=== PATIENT | female | born 1955 | race Caucasian/White ===

== ENCOUNTER 2018-06-07 21:54 | Emergency (ER) | payer BC ==
[2018-06-07 22:03] VITALS: RESP 20
[2018-06-07] MEDS ORDERED: SODIUM CHLORIDE 0.9% 500 ML IV STA (22:15)
[2018-06-07] MEDS ORDERED: METOCLOPRAMIDE 5 MG/ML 2 ML VIAL IVP STA (22:15)
[2018-06-07] MEDS ORDERED: FAMOTIDINE 20 MG/2 ML VIAL IV STA (22:16)
--- NOTE | 2018-06-07 22:22 | ED ---
General Adult HPI - General Chief complaint: Abdominal Pain Stated complaint: Nausea Time Seen by Provider: 06/07/18 22:10 Source: patient, family, RN notes reviewed Mode of arrival: ambulatory Limitations: no limitations - History of Present Illness Initial comments: Patient is a pleasant [age]-year-old female presenting to the emergency department with nausea. Patient states she feels like she can't swallow right now. Patient denies vomiting. Patient has been having some symptoms recently. Patient did have recent visit at [facility] in [place] and diagnosed with recurrence of her cancer in the lymph nodes. Patient is scheduled for chemotherapy next week. Patient does have history of uterine cancer with hysterectomy 2 years ago and chemotherapy. Patient had chest x-ray and computed tomography scan of her abdomen 1 week ago. Patient did have some lower abdominal discomfort couple of days ago with diarrhea that is essentially resolved. Patient only has mild discomfort in the upper abdomen at this time. - Related Data Home Medications Medication Instructions Recorded Confirmed Calcium Carbonate/Vitamin D3 1 tab PO DAILY 06/07/18 06/07/18 [Caltrate 600 Plus D3 Tablet] Naproxen Sodium [Aleve] 220 mg PO DAILY PRN 06/07/18 06/07/18 Ondansetron HCl [Zofran] 8 mg PO Q8H PRN 06/07/18 06/07/18 Prochlorperazine [Compazine] 10 mg PO Q6H PRN 06/07/18 06/07/18 Allergies Allergy/AdvReac Type Severity Reaction Status Date / Time carboplatin Allergy Unknown Verified 06/07/18 22:34 paclitaxel [From Taxol] Allergy Unknown Verified 06/07/18 22:34 Review of Systems ROS Statement: Those systems with pertinent positive or pertinent negative responses have been documented in the HPI. ROS Other: All systems not noted in ROS Statement are negative. Constitutional: Denies: fever Eyes: Denies: eye pain ENT: Denies: ear pain Respiratory: Denies: cough Cardiovascular: Denies: chest pain Endocrine: Reports: fatigue Gastrointestinal: Reports: abdominal pain, nausea Genitourinary: Denies: dysuria Musculoskeletal: Denies: back pain Skin: Denies: rash Neurological: Denies: headache Past Medical History Past Medical History: Cancer History of Any Multi-Drug Resistant Organisms: None Reported Past Surgical History: Hysterectomy Past Psychological History: No Psychological Hx Reported Smoking Status: Never smoker Past Alcohol Use History: None Reported Past Drug Use History: None Reported General Exam Limitations: no limitations General appearance: alert, in no apparent distress Head exam: Present: atraumatic Eye exam: Present: normal appearance, PERRL ENT exam: Present: normal oropharynx Neck exam: Present: normal inspection Respiratory exam: Present: normal lung sounds bilaterally Cardiovascular Exam: Present: regular rate, normal rhythm Expanded Peripheral pulses: 2+: Dorsalis Pedis (R), Dorsalis Pedis (L) GI/Abdominal exam: Present: soft, tenderness (Minimal epigastric tenderness). Absent: distended, guarding, rebound, rigid Extremities exam: Present: normal inspection. Absent: pedal edema, calf tenderness Neurological exam: Present: alert Psychiatric exam: Present: normal affect, normal mood Skin exam: Present: normal color Course Vital Signs 06/07/18 06/07/18 21:59 23:08 Temperature 97.4 F L Pulse Rate 78 69 Respiratory 20 20 Rate Blood Pressure 129/79 124/65 O2 Sat by Pulse 98 99 Oximetry EKG Findings - EKG Comments: EKG Findings:: Normal sinus rhythm 72. NH 162. QRS 78. QT 396. QTc 433. Normal axis. Normal QRS. No acute ST change. Medical Decision Making - Medical Decision Making Patient reevaluated and is feeling much better. Patient requests discharge home. Abdomen soft and nontender. Patient updated on results and need for follow-up. Patient states she does have a prescription for nausea medication at home however has not gotten filled yet. - Lab Data Result diagrams: 06/07/18 22:44 06/07/18 22:44 Lab Results 06/07/18 06/07/18 06/07/18 Range/Units 22:44 22:44 22:44 WBC 6.2 (3.8-10.6) k/uL RBC 4.45 (3.80-5.40) m/uL Hgb 13.3 (11.4-16.0) gm/dL Hct 40.9 (34.0-46.0) % MCV 91.8 (80.0-100.0) fL MCH 29.9 (25.0-35.0) pg MCHC 32.5 (31.0-37.0) g/dL RDW 13.2 (11.5-15.5) % Plt Count 253 (150-450) k/uL Neutrophils % 79 % Lymphocytes % 13 % Monocytes % 6 % Eosinophils % 1 % Basophils % 0 % Neutrophils # 4.9 (1.3-7.7) k/uL Lymphocytes # 0.8 L (1.0-4.8) k/uL Monocytes # 0.4 (0-1.0) k/uL Eosinophils # 0.1 (0-0.7) k/uL Basophils # 0.0 (0-0.2) k/uL PT 10.1 (9.0-12.0) sec INR 1.0 (<1.2) APTT 22.8 (22.0-30.0) sec Sodium 139 (137-145) mmol/L Potassium 4.6 (3.5-5.1) mmol/L Chloride 104 (98-107) mmol/L Carbon Dioxide 23 (22-30) mmol/L Anion Gap 12 mmol/L BUN 17 (7-17) mg/dL Creatinine 0.61 (0.52-1.04) mg/dL Est GFR (CKD-EPI)AfAm >90 (>60 ml/min/1.73 sqM) Est GFR (CKD-EPI)NonAf >90 (>60 ml/min/1.73 sqM) Glucose 106 H (74-99) mg/dL Calcium 9.0 (8.4-10.2) mg/dL Total Bilirubin 0.6 (0.2-1.3) mg/dL AST 23 (14-36) U/L ALT 23 (9-52) U/L Alkaline Phosphatase 61 (38-126) U/L Total Protein 6.9 (6.3-8.2) g/dL Albumin 4.2 (3.5-5.0) g/dL Amylase 39 (30-110) U/L Lipase 74 (23-300) U/L - Radiology Data Radiology results: image reviewed (Chest x-ray shows nonacute abdomen) Disposition Clinical Impression: Nausea Disposition: HOME SELF-CARE Condition: Stable Instructions: Acute Nausea and Vomiting (ED), Abdominal Pain (ED) Additional Instructions: Please follow-up with your primary care physician and oncologist in the next day or 2 for recheck. Return for fevers, abdominal pain, uncontrolled vomiting , not tolerating oral intake, worsening symptoms or other concerns. Is patient prescribed a controlled substance at d/c from ED?: No Referrals: Gregorio Rangel MD [Primary Care Provider] - 1-2 days Time of Disposition: 00:37
[2018-06-07 23:11] LABS: Basophils % (A) 0 %; Eosinophils # (A) 0.1 k/uL (0-0.7); Eosinophils % (A) 1 %; HCT 40.9 % (34.0-46.0); HGB 13.3 gm/dL (11.4-16.0); Lymphocytes # (A) 0.8 k/uL (1.0-4.8); Lymphocytes % (A) 13 %; MCH 29.9 pg (25.0-35.0); MCHC 32.5 g/dL (31.0-37.0); MCV 91.8 fL (80.0-100.0); Mean Platelet Volume 6.7; Monocytes # (A) 0.4 k/uL (0-1.0); Monocytes % (A) 6 %; Neutrophils # (A) 4.9 k/uL (1.3-7.7); Neutrophils % (A) 79 %; Platelet Count 253 k/uL (150-450); RBC 4.45 m/uL (3.80-5.40); RDW 13.2 % (11.5-15.5); WBC 6.2 k/uL (3.8-10.6)
[2018-06-07 23:14] LABS: Albumin 4.2 g/dL (3.5-5.0); Amylase 39 U/L (30-110); Anion Gap 12 mmol/L; Carbon Dioxide 23 mmol/L (22-30); Chloride 104 mmol/L (98-107); Glucose 106 mg/dL (74-99); Lipase 74 U/L (23-300); Sodium 139 mmol/L (137-145); Total Bilirubin 0.6 mg/dL (0.2-1.3); Total Protein 6.9 g/dL (6.3-8.2)
[2018-06-07 23:15] LABS: Partial Thromboplastin Time 22.8 sec (22.0-30.0); Prothrombin Time 10.1 sec (9.0-12.0)
[2018-06-07 23:18] LABS: ALT 23 U/L (9-52); AST 23 U/L (14-36); Alkaline Phosphatase 61 U/L (38-126); Blood Urea Nitrogen 17 mg/dL (7-17); Potassium 4.6 mmol/L (3.5-5.1)
--- NOTE | 2018-06-08 00:30 | XR ---
EXAMINATION TYPE: XR KUB DATE OF EXAM: 06/08/2018 COMPARISON: NONE HISTORY: Nausea and vomiting TECHNIQUE: 2 views upright FINDINGS: There is no sign of intestinal obstruction or pneumoperitoneum. Fecal pattern is normal. Th ere is no sign of a mass. Lung bases are clear. There are no pathologic calcifications over the kidne ys. IMPRESSION: Nonacute abdomen.
[2018-06-08 00:39] LABS: Appearance,Urine Clear (Clear); Bilirubin,Urine Negative (Negative); Blood,Urine Negative (Negative); Color,Urine Yellow; Glucose,Urine (UA) Negative (Negative); Ketones,Urine 1+ (Negative); Leukocyte Esterase,Urine Trace (Negative); Mucus,Urine Many /hpf; Nitrite,Urine Negative (Negative); PH, Urine 5.5 (5.0-8.0); Protein,Urine Trace (Negative); RBC,Urine 1 /hpf (0-5); Specific Gravity,Urine 1.023 (1.001-1.035); Squamous Epithelial Cell,Urine 1 /hpf (0-4)
[2018-06-08 01:12] VITALS: BP 125/67; PULSE 74; TEMP 96.9
== END 2018-06-08 01:13 | disposition home or self-care (01) ==
LOC: EC 21:54
DX: R11.0 Nausea (principal); R10.9 Unspecified abdominal pain; Z85.42 Personal history of malignant neoplasm of other parts of uterus; Z92.21 Personal history of antineoplastic chemotherapy; Z90.710 Acquired absence of both cervix and uterus; Z88.8 Allergy status to other drugs, medicaments and biological substances
CPT/HCPCS: 36415; 93005; 80053; 82150; 83690; 85025; 85610; 85730; 81001; 74018; 99284; 96374; 96375; 96361 ×2; J2765

== ENCOUNTER 2019-08-12 09:25 | Inpatient (IN) | payer MEDICARE, OTHER ==
[2019-08-12] MEDS ORDERED: ONDANSETRON 4 MG/2 ML VIAL IVP STA (10:23)
[2019-08-12] MEDS ORDERED: SODIUM CHLORIDE 0.9% 1,000 ML IV STA (10:23)
[2019-08-12] MEDS ORDERED: PANTOPRAZOLE 40 MG/10 ML VIAL IVP STA (10:23)
--- NOTE | 2019-08-12 10:34 | ED ---
General Adult HPI - General Chief complaint: Nausea/Vomiting/Diarrhea Stated complaint: Vomiting Time Seen by Provider: 08/12/19 10:08 Source: patient Mode of arrival: wheelchair Limitations: no limitations - History of Present Illness Initial comments: Patient is 63-year-old female with history of uterine cancer presenting to the emergency department with a chief complaint of weakness. Patient states over the last 2 weeks she developed generalized weakness due to continuous nausea and multiple episodes of vomiting. She reports going to come on assistance. Endotracheal for recurrent effusions of magnesium, potassium of fluids. Patient reports some improvement after the effusions although she comes home and starts to feel generally weak again. She states that she's not able to keep anything down. Denies any fevers night sweats or chills. Denies any cough shortness of breath or leg swelling. Denies any chest pain,headaches and dizziness but does report some lightheadedness. Denies any diarrhea. Denies any urinary or vaginal symptoms. - Related Data Home Medications Medication Instructions Recorded Confirmed Calcium Carbonate/Vitamin D3 1 tab PO DAILY 06/07/18 06/07/18 [Caltrate 600 Plus D3 Tablet] Naproxen Sodium [Aleve] 220 mg PO DAILY PRN 06/07/18 06/07/18 Ondansetron HCl [Zofran] 8 mg PO Q8H PRN 06/07/18 06/07/18 Prochlorperazine [Compazine] 10 mg PO Q6H PRN 06/07/18 06/07/18 Allergies Allergy/AdvReac Type Severity Reaction Status Date / Time carboplatin Allergy Unknown Verified 08/12/19 10:05 paclitaxel [From Taxol] Allergy Unknown Verified 08/12/19 10:05 Review of Systems ROS Statement: Those systems with pertinent positive or pertinent negative responses have been documented in the HPI. ROS Other: All systems not noted in ROS Statement are negative. Past Medical History Past Medical History: Cancer Additional Past Medical History / Comment(s): UTERINE CANCER -IN REMISSION OF 07/2019 History of Any Multi-Drug Resistant Organisms: None Reported Past Surgical History: Hysterectomy Past Psychological History: No Psychological Hx Reported Smoking Status: Never smoker Past Alcohol Use History: None Reported Past Drug Use History: None Reported General Exam Limitations: no limitations General appearance: alert, in no apparent distress Head exam: Present: atraumatic, normocephalic, normal inspection Eye exam: Present: normal appearance Pupils: Present: normal accommodation ENT exam: Present: normal exam, mucous membranes moist Neck exam: Present: normal inspection, full ROM Respiratory exam: Present: normal lung sounds bilaterally Cardiovascular Exam: Present: regular rate, normal rhythm, normal heart sounds GI/Abdominal exam: Present: soft. Absent: distended, tenderness, guarding Extremities exam: Present: normal inspection, full ROM, normal capillary refill. Absent: pedal edema (No edema bilaterally), calf tenderness (Negative Homans bilaterally.) Back exam: Present: normal inspection, full ROM Neurological exam: Present: alert, oriented X3 Psychiatric exam: Present: normal affect, normal mood Skin exam: Present: warm, dry, intact, normal color Course Vital Signs 08/12/19 08/12/19 10:01 13:05 Temperature 97.6 F Pulse Rate 84 82 Respiratory 16 18 Rate Blood Pressure 145/82 127/62 O2 Sat by Pulse 96 98 Oximetry EKG Findings - EKG Comments: EKG Findings:: Sinus rhythm, no ST changes. Ventricular rate 72, NM interval 162, Q sabianism 74, QT/QTC 388/424. Medical Decision Making - Medical Decision Making Patient is 63-year-old female with history of uterine cancer presenting to the emergency department with chief complaint of weakness. Patient reports for the past. She is having continuous nausea and vomiting. She was weakly to come is instituted for fluids, magnesium and potassium effusions. Patient reports every time she returns home she developed continuous nausea. Patient reports she has not been able to keep any food down with minimal liquids. No chest pain shortness of breath cough or any leg swelling. Chest x-ray unremarkable. Patient is not anemic currently. UA shows +2 ketones which I suspect is secondary to dehydration. Patient given 1 L of fluids. 2 mg of IV magnesium. On reevaluation patient reports improvement in symptoms but otherwise is still feeling weak and unable to ambulate. Patient will be admitted for dehydration. Case discussed with physician. Admitting physician is Dr. mann. - Lab Data Result diagrams: 08/12/19 10:56 08/12/19 10:56 Lab Results 08/12/19 08/12/19 08/12/19 Range/Units 10:56 10:56 10:56 WBC 8.4 (3.8-10.6) k/uL RBC 3.52 L (3.80-5.40) m/uL Hgb 12.3 (11.4-16.0) gm/dL Hct 36.9 (34.0-46.0) % MCV 104.9 H (80.0-100.0) fL MCH 34.9 (25.0-35.0) pg MCHC 33.3 (31.0-37.0) g/dL RDW 13.2 (11.5-15.5) % Plt Count 258 (150-450) k/uL Neutrophils % 89 % Lymphocytes % 6 % Monocytes % 4 % Eosinophils % 0 % Basophils % 0 % Neutrophils # 7.5 (1.3-7.7) k/uL Lymphocytes # 0.5 L (1.0-4.8) k/uL Monocytes # 0.3 (0-1.0) k/uL Eosinophils # 0.0 (0-0.7) k/uL Basophils # 0.0 (0-0.2) k/uL Macrocytosis Slight PT 10.5 (9.0-12.0) sec INR 1.0 (<1.2) APTT 20.7 L (22.0-30.0) sec Sodium 136 L (137-145) mmol/L Potassium 3.9 (3.5-5.1) mmol/L Chloride 99 (98-107) mmol/L Carbon Dioxide 24 (22-30) mmol/L Anion Gap 13 mmol/L BUN 17 (7-17) mg/dL Creatinine 0.66 (0.52-1.04) mg/dL Est GFR (CKD-EPI)AfAm >90 (>60 ml/min/1.73 sqM) Est GFR (CKD-EPI)NonAf >90 (>60 ml/min/1.73 sqM) Glucose 145 H (74-99) mg/dL Calcium 10.7 H (8.4-10.2) mg/dL Magnesium (1.6-2.3) mg/dL Total Bilirubin 0.6 (0.2-1.3) mg/dL AST 20 (14-36) U/L ALT 18 (4-34) U/L Alkaline Phosphatase 71 (38-126) U/L Troponin I (0.000-0.034) ng/mL Total Protein 7.1 (6.3-8.2) g/dL Albumin 4.5 (3.5-5.0) g/dL Amylase 34 (30-110) U/L Lipase 36 (23-300) U/L Urine Color Urine Appearance (Clear) Urine pH (5.0-8.0) Ur Specific [place] (1.001-1.035) Urine Protein (Negative) Urine Glucose (UA) (Negative) Urine Ketones (Negative) Urine Blood (Negative) Urine Nitrite (Negative) Urine Bilirubin (Negative) Urine Urobilinogen (<2.0) mg/dL Ur Leukocyte Esterase (Negative) Urine RBC (0-5) /hpf Urine WBC (0-5) /hpf Ur Squamous Epith Cells (0-4) /hpf Urine Bacteria (None) /hpf Urine Mucus (None) /hpf 08/12/19 08/12/19 08/12/19 Range/Units 10:56 10:56 12:45 WBC (3.8-10.6) k/uL RBC (3.80-5.40) m/uL Hgb (11.4-16.0) gm/dL Hct (34.0-46.0) % MCV (80.0-100.0) fL MCH (25.0-35.0) pg MCHC (31.0-37.0) g/dL RDW (11.5-15.5) % Plt Count (150-450) k/uL Neutrophils % % Lymphocytes % % Monocytes % % Eosinophils % % Basophils % % Neutrophils # (1.3-7.7) k/uL Lymphocytes # (1.0-4.8) k/uL Monocytes # (0-1.0) k/uL Eosinophils # (0-0.7) k/uL Basophils # (0-0.2) k/uL Macrocytosis PT (9.0-12.0) sec INR (<1.2) APTT (22.0-30.0) sec Sodium (137-145) mmol/L Potassium (3.5-5.1) mmol/L Chloride (98-107) mmol/L Carbon Dioxide (22-30) mmol/L Anion Gap mmol/L BUN (7-17) mg/dL Creatinine (0.52-1.04) mg/dL Est GFR (CKD-EPI)AfAm (>60 ml/min/1.73 sqM) Est GFR (CKD-EPI)NonAf (>60 ml/min/1.73 sqM) Glucose (74-99) mg/dL Calcium (8.4-10.2) mg/dL Magnesium 1.0 L (1.6-2.3) mg/dL Total Bilirubin (0.2-1.3) mg/dL AST (14-36) U/L ALT (4-34) U/L Alkaline Phosphatase (38-126) U/L Troponin I <0.012 (0.000-0.034) ng/mL Total Protein (6.3-8.2) g/dL Albumin (3.5-5.0) g/dL Amylase (30-110) U/L Lipase (23-300) U/L Urine Color Yellow Urine Appearance Cloudy H (Clear) Urine pH 6.5 (5.0-8.0) Ur Specific [place] 1.018 (1.001-1.035) Urine Protein Trace H (Negative) Urine Glucose (UA) Negative (Negative) Urine Ketones 2+ H (Negative) Urine Blood Negative (Negative) Urine Nitrite Negative (Negative) Urine Bilirubin Negative (Negative) Urine Urobilinogen <2.0 (<2.0) mg/dL Ur Leukocyte Esterase Moderate H (Negative) Urine RBC 1 (0-5) /hpf Urine WBC 6 H (0-5) /hpf Ur Squamous Epith Cells 5 H (0-4) /hpf Urine Bacteria Rare H (None) /hpf Urine Mucus Few H (None) /hpf Disposition Clinical Impression: Dehydration Disposition: ADMITTED IP TO THIS HOSP Condition: Stable Instructions (If sedation given, give patient instructions): Acute Diarrhea (ED) Additional Instructions: Patient will be admitted Is patient prescribed a controlled substance at d/c from ED?: No Referrals: Gregorio Rangel MD [Primary Care Provider] - 1-2 days Time of Disposition: 13:50
[2019-08-12 11:10] LABS: Basophils % (A) 0 %; Eosinophils % (A) 0 %; HCT 36.9 % (34.0-46.0); HGB 12.3 gm/dL (11.4-16.0); Lymphocytes # (A) 0.5 k/uL (1.0-4.8); Lymphocytes % (A) 6 %; MCH 34.9 pg (25.0-35.0); MCHC 33.3 g/dL (31.0-37.0); MCV 104.9 fL (80.0-100.0); Macrocytosis Slight; Mean Platelet Volume 7.8; Monocytes # (A) 0.3 k/uL (0-1.0); Monocytes % (A) 4 %; Neutrophils # (A) 7.5 k/uL (1.3-7.7); Neutrophils % (A) 89 %; Platelet Count 258 k/uL (150-450); RBC 3.52 m/uL (3.80-5.40); RDW 13.2 % (11.5-15.5); WBC 8.4 k/uL (3.8-10.6)
[2019-08-12 11:18] LABS: ALT 18 U/L (4-34); AST 20 U/L (14-36); African American GFR (CKD) >90 (>60 ml/min/1.73 sqM); Albumin 4.5 g/dL (3.5-5.0); Alkaline Phosphatase 71 U/L (38-126); Amylase 34 U/L (30-110); Anion Gap 13 mmol/L; Blood Urea Nitrogen 17 mg/dL (7-17); Calcium 10.7 mg/dL (8.4-10.2); Carbon Dioxide 24 mmol/L (22-30); Chloride 99 mmol/L (98-107); Glucose 145 mg/dL (74-99); Non-African American GFR(CKD) >90 (>60 ml/min/1.73 sqM); Potassium 3.9 mmol/L (3.5-5.1); Sodium 136 mmol/L (137-145); Total Bilirubin 0.6 mg/dL (0.2-1.3); Total Protein 7.1 g/dL (6.3-8.2)
[2019-08-12] MEDS ORDERED: MORPHINE SULFATE 4 MG/ML SYRINGE IVP STA (11:29)
[2019-08-12 11:33] LABS: Prothrombin Time 10.5 sec (9.0-12.0)
[2019-08-12 11:41] LABS: Partial Thromboplastin Time 20.7 sec (22.0-30.0)
--- NOTE | 2019-08-12 12:11 | XR ---
EXAMINATION TYPE: XR chest 2V DATE OF EXAM: 08/12/2019 HISTORY: weakness. REFERENCE: NONE. FINDINGS: The lungs are clear. Pleural spaces are clear. Heart size is within normal limits. Note is made of a Mediport on the right. IMPRESSION: NO ACUTE INTRATHORACIC ABNORMALITY.
[2019-08-12 13:33] LABS: Appearance,Urine Cloudy (Clear); Bacteria,Urine Rare /hpf; Bilirubin,Urine Negative (Negative); Blood,Urine Negative (Negative); Color,Urine Yellow; Glucose,Urine (UA) Negative (Negative); Ketones,Urine 2+ (Negative); Leukocyte Esterase,Urine Moderate (Negative); Mucus,Urine Few /hpf; Nitrite,Urine Negative (Negative); PH, Urine 6.5 (5.0-8.0); Protein,Urine Trace (Negative); RBC,Urine 1 /hpf (0-5); Specific Gravity,Urine 1.018 (1.001-1.035); Squamous Epithelial Cell,Urine 5 /hpf (0-4); Urobilinogen,Urine <2.0 mg/dL (<2.0); WBC,Urine 6 /hpf (0-5)
[2019-08-12] MEDS: MAGNESIUM SULFATE-D5W PMX 1 GM in DEXTROSE/WATER 1 100ML.BAG IVPB SCH ×2 (13:50→15:05)
[2019-08-12] MEDS ORDERED: NALOXONE 0.4 MG/ML 1 ML VIAL IV PRN (14:51)
[2019-08-12] MEDS ORDERED: SODIUM CHLORIDE 0.9% 1,000 ML IV SCH (15:00)
[2019-08-12] MEDS: Acetaminophen-Codeine 300-30mg TAB PO PRN (18:21)
[2019-08-12] MEDS: PARoxetine 20 MG TAB PO SCH (19:54)
--- NOTE | 2019-08-12 22:36 | P.HPIM ---
History of Present Illness H&P Date: 08/12/19 Chief Complaint: Weak and tired History of presenting complaint: This is a pleasant 63-year-old patient of Dr. Gregorio Rangel. Patient has a diagnosis of uterine cancer. Did undergo total history.. Patient had 2 rounds of chemotherapy for positive lymph nodes. Second one being completed in September of this year. Patient has been on a maintenance medication. For 3 weeks patient started having nausea vomiting predominantly dry heaving. Unable to keep any food down. Progressively has gotten worse. 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 Decided to come in. I noticed that patient's left side of the face is weak she thinks this may be present for over 2 weeks not sure. She has some water from the left eye. No change in speech. No headache. No other focal weakness. Review of systems: GEN.: Weak tired EYES: Some eye watering from the left eye HEENT: None NECK: None RESPIRATORY: None CARDIOVASCULAR: None GASTROINTESTINAL: As above GENITOURINARY: None MUSCULOSKELETAL: None LYMPHATICS: None HEMATOLOGICAL: None PSYCHIATRY: None NEUROLOGICAL: None Social history: Does not smoke or drink alcohol. . Family history: Reviewed, noncontributory to presentation Physical examination: VITAL SIGNS: 97.6, 84, 16, 145/82, 96% room air GENERAL: 25.8, laying in bed. Bit tired appearing. EYES: [Pupils equal. Conjunctiva pale. HEENT: External appearance of nose and ears normal, oral cavity dry. NECK: JVD not raised; masses not palpable. HEART: First and second heart sounds are normal; no edema. LUNGS: Respiratory rate normal; clear to auscultation. ABDOMEN: Soft, nontender, liver spleen not palpable, no masses palpable. PSYCH: Alert and oriented x3; mood and affect normal. NEUROLOGICAL: Skeletal facial muscles are weak. Unable to fully close the left eye., Multiple sport of the right, less so wrinkling on the left forehead. No other focal findings . LYMPHATICS: No lymph nodes palpable in the axilla and neck INVESTIGATIONS, reviewed in the clinical context: White count 8.4 hemoglobin 12.3 platelets were 258 potassium 3.9 creatinine 0.66 Calcium 10.7. Magnesium 1 UA positive for leukoesterase WBC Assessment: -Clinical dehydration from persistent nausea for last 3 weeks. Patient been hardly able to keep any food down. 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 He was scopolam ine patch. Try the patient on a full liquid diet. Replacement patient. Start the patient on IV ceftriaxone. Lovenox for DVT prophylaxis. Care was discussed with the patient. Questions were answered Past Medical History Past Medical History: Cancer Additional Past Medical History / Comment(s): UTERINE CANCER -IN REMISSION OF 07/2019 History of Any Multi-Drug Resistant Organisms: None Reported Past Surgical History: Hysterectomy Past Psychological History: No Psychological Hx Reported Smoking Status: Never smoker Past Alcohol Use History: None Reported Past Drug Use History: None Reported Medications and Allergies Home Medications Medication Instructions Recorded Confirmed Type PARoxetine [Paxil] 20 mg PO HS 08/12/19 08/12/19 History Allergies Allergy/AdvReac Type Severity Reaction Status Date / Time carboplatin Allergy Unknown Verified 08/12/19 13:54 paclitaxel [From Taxol] Allergy Unknown Verified 08/12/19 13:54 Physical Exam Vitals: Vital Signs Temp Pulse Pulse Pulse Resp BP BP 08/12/19 21:09 97.4 F L 74 15 145/72 08/12/19 16:00 97.4 F L 79 16 136/82 08/12/19 15:17 97.6 F 75 18 134/56 08/12/19 15:16 75 18 134/56 08/12/19 13:05 82 18 127/62 08/12/19 10:01 97.6 F 84 16 145/82 Pulse Ox 08/12/19 21:09 08/12/19 16:00 95 08/12/19 15:17 98 08/12/19 15:16 98 08/12/19 13:05 98 08/12/19 10:01 96 Intake and Output 08/12/19 08/12/19 08/12/19 06:59 14:59 22:59 Other: Voiding Method Bedside Commode # Voids 1 Weight 72.575 kg 72.575 kg Results CBC & Chem 7: 08/12/19 10:56 08/12/19 10:56 Labs: Abnormal Lab Results - Last 24 Hours (Table) 08/12/19 08/12/19 08/12/19 Range/Units 10:56 10:56 10:56 RBC 3.52 L (3.80-5.40) m/uL MCV 104.9 H (80.0-100.0) fL Lymphocytes # 0.5 L (1.0-4.8) k/uL APTT 20.7 L (22.0-30.0) sec Sodium 136 L (137-145) mmol/L Glucose 145 H (74-99) mg/dL Calcium 10.7 H (8.4-10.2) mg/dL Magnesium (1.6-2.3) mg/dL Urine Appearance (Clear) Urine Protein (Negative) Urine Ketones (Negative) Ur Leukocyte Esterase (Negative) Urine WBC (0-5) /hpf Ur Squamous Epith Cells (0-4) /hpf Urine Bacteria (None) /hpf Urine Mucus (None) /hpf 08/12/19 08/12/19 Range/Units 10:56 12:45 RBC (3.80-5.40) m/uL MCV (80.0-100.0) fL Lymphocytes # (1.0-4.8) k/uL APTT (22.0-30.0) sec Sodium (137-145) mmol/L Glucose (74-99) mg/dL Calcium (8.4-10.2) mg/dL Magnesium 1.0 L (1.6-2.3) mg/dL Urine Appearance Cloudy H (Clear) Urine Protein Trace H (Negative) Urine Ketones 2+ H (Negative) Ur Leukocyte Esterase Moderate H (Negative) Urine WBC 6 H (0-5) /hpf Ur Squamous Epith Cells 5 H (0-4) /hpf Urine Bacteria Rare H (None) /hpf Urine Mucus Few H (None) /hpf Thrombosis Risk Factor Assmnt - Choose All That Apply Any of the Below Risk Factors Present?: No
[2019-08-13] MEDS: LACTATED RINGERS 1,000 ML IV SCH ×4 (00:03→17:05)
[2019-08-13] MEDS: SCOPOLAMINE 1.5MG/72HR PATCH TRANSDERM SCH (00:04)
[2019-08-13] MEDS: MAGNESIUM OXIDE 400 MG TAB PO SCH ×4 (00:04→21:05)
[2019-08-13] MEDS: ENOXAPARIN 40 MG/0.4 ML SYRINGE SQ SCH ×2 (00:04→21:05)
[2019-08-13] MEDS: ONDANSETRON 4 MG/2 ML VIAL IVP PRN ×4 (01:05→22:52)
[2019-08-13 07:43] LABS: African American GFR (CKD) >90 (>60 ml/min/1.73 sqM); Anion Gap 9 mmol/L; Blood Urea Nitrogen 16 mg/dL (7-17); Calcium 9.2 mg/dL (8.4-10.2); Carbon Dioxide 28 mmol/L (22-30); Chloride 98 mmol/L (98-107); Glucose 115 mg/dL (74-99); Magnesium 1.2 mg/dL (1.6-2.3); Non-African American GFR(CKD) >90 (>60 ml/min/1.73 sqM); Potassium 3.6 mmol/L (3.5-5.1); Sodium 135 mmol/L (137-145)
[2019-08-13] MEDS ORDERED: MAGNESIUM SULFATE-D5W PMX 2 GM in DEXTROSE/WATER 1 100ML.BAG IVPB ONE (11:26)
[2019-08-13] MEDS: Acetaminophen-Codeine 300-30mg TAB PO PRN (17:04)
[2019-08-13 20:41] LABS: Glucose,Whole Blood 130 mg/dL (75-99)
[2019-08-13] MEDS: PARoxetine 20 MG TAB PO SCH (21:05)
--- NOTE | 2019-08-13 21:16 | P.PN ---
Progress Note - Text Progress Note Date: 08/13/19 Chief Complaint: Weak and tired History of presenting complaint: This is a pleasant 63-year-old patient of Dr. Gregorio Rangel. Patient has a diagnosis of uterine cancer. Did undergo total history.. Patient had 2 rounds of chemotherapy for positive lymph nodes. Second one being completed in September of this year. Patient has been on a maintenance medication. For 3 weeks patient started having nausea vomiting predominantly dry heaving. Unable to keep any food down. Progressively has gotten worse. 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 Decided to come in. I noticed that patient's left side of the face is weak she thinks this may be present for over 2 weeks not sure. She has some water from the left eye. No change in speech. No headache. No other focal weakness. admitted with severe dehydration, electrolyte abnormalities, and new onset of left facial weakness. Today-persistent for weeks and tired. Having some nausea and occasional vomiting. Patient is concerned about getting a MRI done because of insurance reasons. Social work is looking into the same. Review of systems: Was done for constitutional, cardiovascular, GI, pulmonary. relevant finding as above Active Medications Acetaminophen/Codeine Phosphate (Tylenol #3) 1 each PO Q4HR PRN PRN Reason: Moderate Pain Last Admin: 08/13/19 17:04 Dose: 1 each Documented by: Enoxaparin Sodium (Lovenox) 40 mg SQ DAILY@2100 PAT Last Admin: 08/13/19 21:05 Dose: 40 mg Documented by: Ceftriaxone Sodium 1 gm/ (Sodium Chloride) 50 mls @ 100 mls/hr IVPB Q24H [facility] Last Admin: 08/13/19 00:04 Dose: 100 mls/hr Documented by: Lactated Ringer's (Lactated Ringers) 1,000 mls @ 150 mls/hr IV .Q6H40M [facility] Last Admin: 08/13/19 17:05 Dose: 150 mls/hr Documented by: Magnesium Oxide (Mag-Ox) 400 mg PO TID [facility] Last Admin: 08/13/19 21:05 Dose: 400 mg Documented by: Naloxone HCl (Narcan) 0.2 mg IV Q2M PRN PRN Reason: Opioid Reversal Ondansetron HCl (Zofran) 4 mg IVP Q6HR PRN PRN Reason: Nausea And Vomiting Last Admin: 12/16/19 12:10 Dose: 4 mg Documented by: Paroxetine HCl (Paxil) 20 mg PO HS [facility] Last Admin: 08/13/19 21:05 Dose: 20 mg Documented by: Scopolamine (Transderm-Scop 1.5mg/72hr Patch) 1 patch TRANSDERM Q72H [facility] Last Admin: 08/13/19 00:04 Dose: 1 patch Documented by: Physical examination: VITAL SIGNS: 97.8, 68, 16, 151/75 GENERAL: laying in bed, tired rundown EYES: [Pupils equal. Conjunctiva pale. HEENT: External appearance of nose and ears normal, oral cavity dry. NECK: JVD not raised; masses not palpable. HEART: First and second heart sounds are normal; no edema. LUNGS: Respiratory rate normal; clear to auscultation. ABDOMEN: Soft, nontender, liver spleen not palpable, no masses palpable. PSYCH: Alert and oriented x3; mood and affect normal. NEUROLOGICAL: Skeletal facial muscles are weak. Unable to fully close the left eye., Multiple sport of the right, less so wrinkling on the left forehead. No other focal findings . INVESTIGATIONS, reviewed in the clinical context: Potassium 3.6 magnesium 1.2 Previous testing White count 8.4 hemoglobin 12.3 platelets were 258 potassium 3.9 creatinine 0.66 Calcium 10.7. Magnesium 1 UA positive for leukoesterase WBC Assessment: -Persistent nausea vomiting, patient had been started on scopolamine patch -Clinical dehydration from persistent nausea for last 3 weeks. Patient been hardly able to keep any food down. 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 We will add Reglan scheduled. we'll get a bedside commode. We'll also get a GI consultation. Replace electrolytes.
[2019-08-13] MEDS: METOCLOPRAMIDE 5 MG/ML 2 ML VIAL IVP SCH (22:52)
[2019-08-14] MEDS: LACTATED RINGERS 1,000 ML IV SCH ×4 (06:13→22:29)
[2019-08-14] MEDS: METOCLOPRAMIDE 5 MG/ML 2 ML VIAL IVP SCH ×3 (06:25→18:05)
[2019-08-14] MEDS: MAGNESIUM OXIDE 400 MG TAB PO SCH ×3 (07:53→22:20)
[2019-08-14] MEDS: Acetaminophen-Codeine 300-30mg TAB PO PRN ×2 (09:19→22:18)
[2019-08-14 12:45] LABS: African American GFR (CKD) >90 (>60 ml/min/1.73 sqM); Anion Gap 8 mmol/L; Blood Urea Nitrogen 12 mg/dL (7-17); Calcium 9.4 mg/dL (8.4-10.2); Carbon Dioxide 30 mmol/L (22-30); Chloride 94 mmol/L (98-107); Glucose 107 mg/dL (74-99); Magnesium 1.3 mg/dL (1.6-2.3); Non-African American GFR(CKD) >90 (>60 ml/min/1.73 sqM); Potassium 3.3 mmol/L (3.5-5.1); Sodium 132 mmol/L (137-145)
--- NOTE | 2019-08-14 19:52 | CONS ---
CONSULTATION DATE OF SERVICE: 08/14/2019 REQUESTING PHYSICIAN: Dr. Gregorio Rangel. REASON FOR CONSULTATION: Nausea, vomiting, and weakness of 3 weeks duration. HISTORY OF PRESENT ILLNESS: The patient is a 63-year-old pleasant white female admitted to the hospital because of progressive weakness, nausea, vomiting, dry heaves for the last 3 weeks duration. The patient was diagnosed with uterine cancer approximately 4 years ago. Initially underwent total hysterectomy followed by chemotherapy and she had recurrence about a year ago and had 2 rounds of chemotherapy starting in September of this year. Subsequently she was on maintenance chemotherapy which she stopped about 6 weeks ago. For the last 3 weeks, she has nausea, vomiting, abdominal discomfort, dry heaves, weight loss of 17 pounds. No fever, chills, or night sweats. No significant change in her bowel habits. No prior history of peptic ulcer disease. No recent NSAID use. PAST MEDICAL HISTORY: Significant for uterine cancer diagnosed in February of 2015 with recurrence a year ago. MEDICATIONS: At home include Paxil. ALLERGIES: TO TAXOL AND CARBOPLATIN. SOCIAL HISTORY: No smoking. No alcohol use. FAMILY HISTORY: Unremarkable. REVIEW OF SYSTEMS: Cardiopulmonary: No chest pain or shortness of breath. GENITOURINARY: No dysuria or hematuria. MUSCULOSKELETAL: Unremarkable. SKIN unremarkable. ENDOCRINE unremarkable. PSYCHIATRIC unremarkable. NEUROLOGY unremarkable. ENT/vision unremarkable CONSTITUTIONAL: Weight loss of 17 pounds. No fever, chills or night sweats. PHYSICAL EXAMINATION: She appears comfortable. No apparent distress. Vital signs stable. Blood pressure is 133/73, pulse is 68, temperature 97.7. HEENT examination unremarkable. Conjunctivae pink. Sclerae anicteric. Oral cavity no lesions. NECK: No JVD or lymph node enlargement. CHEST: Clear to auscultation. HEART: Regular rate and rhythm. ABDOMEN: Soft. There was minimal tenderness in the epigastric area. Bowel sounds are positive. No organomegaly. EXTREMITIES: No pedal edema. SKIN no rashes. NEUROLOGIC: Alert and oriented x3. No focal deficits. LABS: WBC of 8.4, hemoglobin 12.3, platelets normal. Basic metabolic panel is within normal limits. Amylase and lipase are normal. ALT, AST, T-bilirubin and alkaline phosphatase are normal. IMPRESSION: 1. Epigastric pain associated with nausea, vomiting, dry heaves, and weight loss of 17 pounds in the last 3 weeks duration. Rule out upper gastrointestinal pathology/peptic ulcer disease. The patient denies any recent NSAID use. Never had an upper endoscopy in the past. 2. History of uterine cancer diagnosed 4 years ago, status post total abdominal hysterectomy followed by chemotherapy. She had recurrence in September of this year and had 2 rounds of chemotherapy followed by maintenance chemo which was stopped about 7 weeks ago. Presently on no medications other than Paxil. RECOMMENDATION: 1. Continue with Protonix and Zofran as needed. 2. Clear liquid diet and advance as tolerated. 3. Proceed with an upper endoscopy tomorrow to evaluate this further. 4. If EGD is negative, we will obtain ultrasound of the abdomen. 5. We will follow with you closely during the hospital stay. Thank you for this consultation. MMODL / IJN: [id number] /
[2019-08-14] MEDS: ONDANSETRON 4 MG/2 ML VIAL IVP PRN (22:19)
[2019-08-14] MEDS: PARoxetine 20 MG TAB PO SCH (22:20)
[2019-08-14] MEDS: ENOXAPARIN 40 MG/0.4 ML SYRINGE SQ SCH (22:20)
[2019-08-14] MEDS: PANTOPRAZOLE 40 MG/10 ML VIAL IVP SCH (22:20)
--- NOTE | 2019-08-14 23:54 | P.PN ---
Progress Note - Text Progress Note Date: 08/14/19 Chief Complaint: Weak and tired History of presenting complaint: This is a pleasant 63-year-old patient of Dr. Gregorio Rangel. Patient has a diagnosis of uterine cancer. Did undergo total history.. Patient had 2 rounds of chemotherapy for positive lymph nodes. Second one being completed in September of this year. Patient has been on a maintenance medication. For 3 weeks patient started having nausea vomiting predominantly dry heaving. Unable to keep any food down. Progressively has gotten worse. 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 Decided to come in. I noticed that patient's left side of the face is weak she thinks this may be present for over 2 weeks not sure. She has some water from the left eye. No change in speech. No headache. No other focal weakness. admitted with severe dehydration, electrolyte abnormalities, and new onset of left facial weakness. Scopolamine patch and Reglan was added. Today-. Improvement and vomiting. Some nausea is present. Does feel still tired. Getting IV fluids. Review of systems: Was done for constitutional, cardiovascular, GI, pulmonary. relevant finding as above Active Medications Acetaminophen/Codeine Phosphate (Tylenol #3) 1 each PO Q4HR PRN PRN Reason: Moderate Pain Last Admin: 08/14/19 22:18 Dose: 1 each Documented by: Enoxaparin Sodium (Lovenox) 40 mg SQ DAILY@2100 [facility] Last Admin: 08/14/19 22:20 Dose: 40 mg Documented by: Ceftriaxone Sodium 1 gm/ (Sodium Chloride) 50 mls @ 100 mls/hr IVPB Q24H [facility] Last Admin: 08/14/19 22:28 Dose: 100 mls/hr Documented by: Lactated Ringer's (Lactated Ringers) 1,000 mls @ 150 mls/hr IV .Q6H40M [facility] Last Admin: 08/14/19 22:29 Dose: 150 mls/hr Documented by: Magnesium Oxide (Mag-Ox) 400 mg PO TID [facility] Last Admin: 08/14/19 22:20 Dose: 400 mg Documented by: Metoclopramide HCl (Reglan) 10 mg IVP Q6HR [facility] Last Admin: 08/14/19 18:05 Dose: 10 mg Documented by: Naloxone HCl (Narcan) 0.2 mg IV Q2M PRN PRN Reason: Opioid Reversal Ondansetron HCl (Zofran) 4 mg IVP Q6HR PRN PRN Reason: Nausea And Vomiting Last Admin: 08/14/19 22:19 Dose: 4 mg Documented by: Pantoprazole Sodium (Protonix) 40 mg IVP BID [facility] Last Admin: 08/14/19 22:20 Dose: 40 mg Documented by: Paroxetine HCl (Paxil) 20 mg PO HS [facility] Last Admin: 08/14/19 22:20 Dose: 20 mg Documented by: Scopolamine (Transderm-Scop 1.5mg/72hr Patch) 1 patch TRANSDERM Q72H [facility] Last Admin: 08/13/19 00:04 Dose: 1 patch Documented by: Physical examination: VITAL SIGNS: 98.3, 66, 18, 107/65, 97% room air GENERAL: Laying in bed EYES: [Pupils equal. Conjunctiva pale. HEENT: External appearance of nose and ears normal, oral cavity dry. NECK: JVD not raised; masses not palpable. HEART: First and second heart sounds are normal; no edema. LUNGS: Respiratory rate normal; clear to auscultation. ABDOMEN: Soft, nontender, liver spleen not palpable, no masses palpable. PSYCH: Alert and oriented x3; mood and affect normal. NEUROLOGICAL: Skeletal facial muscles are weak. Unable to fully close the left eye., Multiple sport of the right, less so wrinkling on the left forehead. No other focal findings . INVESTIGATIONS, reviewed in the clinical context: Potassium 3.3 magnesium 1.3 Previous testing White count 8.4 hemoglobin 12.3 platelets were 258 potassium 3.9 creatinine 0.66 Calcium 10.7. Magnesium 1 UA positive for leukoesterase WBC Assessment: -Persistent nausea vomiting, patient had been started on scopolamine patch, Reglan was added, some improvement -Clinical dehydration from persistent nausea for last 3 weeks. Patient been hardly able to keep any food down. 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 Continue with IV fluids. Encouraged to sit up in a chair. Other medications to continue. Seen by GI. For EGD tomorrow.
[2019-08-15] MEDS: METOCLOPRAMIDE 5 MG/ML 2 ML VIAL IVP SCH ×4 (00:32→18:51)
[2019-08-15] MEDS: LACTATED RINGERS 1,000 ML IV SCH ×3 (05:35→17:28)
[2019-08-15] MEDS: ONDANSETRON 4 MG/2 ML VIAL IVP PRN (07:29)
[2019-08-15] MEDS: PANTOPRAZOLE 40 MG/10 ML VIAL IVP SCH ×2 (07:29→20:16)
[2019-08-15] MEDS: MAGNESIUM OXIDE 400 MG TAB PO SCH ×3 (07:29→20:16)
[2019-08-15] MEDS: Acetaminophen-Codeine 300-30mg TAB PO PRN ×2 (07:40→16:51)
[2019-08-15] MEDS ORDERED: LIDOCAINE 1% INJ 10MG/ML (20 ML MDV) ONE (13:43)
[2019-08-15] MEDS ORDERED: ETOMIDATE 2 MG/ML 10 ML VIAL ONE (13:43)
[2019-08-15] MEDS ORDERED: LACTATED RINGERS 1,000 ML IV ONE (13:49)
--- NOTE | 2019-08-15 14:25 | P.PCN ---
Date of Procedure: 08/15/19 Description of Procedure: BRIEF HISTORY: 63-year-old female with multiple medical comorbidities who is having esophagogastroduodenoscopy for evaluation of epigastric abdominal pain with associated symptoms of nausea, vomiting and unintentional weight loss. Symptoms of present for approximately 3 weeks duration. Patient denies any NSAID. Never had an upper endoscopy in the past. PROCEDURE PERFORMED: Esophagogastroduodenoscopy with biopsy. PREOPERATIVE DIAGNOSIS: Epigastric abdominal pain, nausea and vomiting. ESTIMATED BLOOD LOSS: Minimal. IV sedation per anesthesia. PROCEDURE: After informed consent was obtained, the patient was brought into the endoscopy unit. IV sedation was administered by Anesthesia under continuous monitoring. Initially the Olympus GIF-190 video endoscope was inserted into the mouth. Esophagus intubated without any difficulty. It was gradually advanced into the stomach and duodenum and carefully examined. The bulb and the second part of the duodenum appeared normal with biopsies taken. The scope at this time was withdrawn to the stomach, adequately insufflated with air, and upon careful examination, mucosa of the antrum, body, cardia and the fundus appeared normal, except for some mild scattered erythema suggestive of mild gastritis with biopsies taken. Some fundic gland appearing benign polyps in the body of the stomach were noted. The scope was then withdrawn into the esophagus. The GE junction was located at 36 cm from the incisors, with a small 1 cm hiatal hernia noted. The esophagus appeared normal. There were no erosions or ulcerations seen and the patient tolerated the procedure well. IMPRESSION: 1. Mild gastritis antrum body, biopsied. 2. Duodenal biopsies. 3. Benign-appearing fundic gland polyps. 4. Small 1 cm hiatal hernia.. RECOMMENDATIONS: The findings of this examination were discussed with the patient. Okay to resume full liquid diet and advance as tolerated. We'll change Zofran to [id number]. Continue other antiemetic therapy as needed. Continue Protonix therapyfor symptomatic relief. Await pathology from biopsies.
[2019-08-15] MEDS: ONDANSETRON 4 MG/2 ML VIAL IVP SCH (17:27)
[2019-08-15] MEDS: ENOXAPARIN 40 MG/0.4 ML SYRINGE SQ SCH (20:16)
[2019-08-15] MEDS: PARoxetine 20 MG TAB PO SCH (20:16)
[2019-08-15] MEDS: SCOPOLAMINE 1.5MG/72HR PATCH TRANSDERM SCH (22:16)
--- NOTE | 2019-08-16 00:09 | P.PN ---
Progress Note - Text Progress Note Date: 08/15/19 Chief Complaint: Weak and tired History of presenting complaint: This is a pleasant 63-year-old patient of Dr. Gregorio Rangel. Patient has a diagnosis of uterine cancer. Did undergo total history.. Patient had 2 rounds of chemotherapy for positive lymph nodes. Second one being completed in September of this year. Patient has been on a maintenance medication. For 3 weeks patient started having nausea vomiting predominantly dry heaving. Unable to keep any food down. Progressively has gotten worse. 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 Decided to come in. I noticed that patient's left side of the face is weak she thinks this may be present for over 2 weeks not sure. She has some water from the left eye. No change in speech. No headache. No other focal weakness. admitted with severe dehydration, electrolyte abnormalities, and new onset of left facial weakness. Scopolamine patch and Reglan was added. Today-. saw the patient does morning. Scheduled to go down for EGD..Mr. tired. Nausea is present. Vomiting is gone on. at the bedside. Review of systems: Was done for constitutional, cardiovascular, GI, pulmonary. relevant finding as above Active Medications Acetaminophen/Codeine Phosphate (Tylenol #3) 1 each PO Q4HR PRN PRN Reason: Moderate Pain Last Admin: 08/15/19 16:51 Dose: 1 each Documented by: Enoxaparin Sodium (Lovenox) 40 mg SQ DAILY@2100 [facility] Last Admin: 08/15/19 20:16 Dose: 40 mg Documented by: Ceftriaxone Sodium 1 gm/ (Sodium Chloride) 50 mls @ 100 mls/hr IVPB Q24H [facility] Last Admin: 08/15/19 22:15 Dose: 100 mls/hr Documented by: Lactated Ringer's (Lactated Ringers) 1,000 mls @ 150 mls/hr IV .Q6H40M [facility] Last Admin: 08/15/19 17:28 Dose: 150 mls/hr Documented by: Magnesium Oxide (Mag-Ox) 400 mg PO TID [facility] Last Admin: 08/15/19 20:16 Dose: 400 mg Documented by: Metoclopramide HCl (Reglan) 10 mg IVP Q6HR [facility] Last Admin: 08/15/19 18:51 Dose: 10 mg Documented by: Naloxone HCl (Narcan) 0.2 mg IV Q2M PRN PRN Reason: Opioid Reversal Ondansetron HCl (Zofran) 4 mg IVP Q6HR [facility] Last Admin: 08/15/19 17:27 Dose: 4 mg Documented by: Pantoprazole Sodium (Protonix) 40 mg IVP BID [facility] Last Admin: 08/15/19 20:16 Dose: 40 mg Documented by: Paroxetine HCl (Paxil) 20 mg PO HS [facility] Last Admin: 08/15/19 20:16 Dose: 20 mg Documented by: Scopolamine (Transderm-Scop 1.5mg/72hr Patch) 1 patch TRANSDERM Q72H [facility] Last Admin: 08/15/19 22:16 Dose: 1 patch Documented by: Physical examination: VITAL SIGNS: 98, 73, 16, 152/69, 92% room air GENERAL: Laying in bed, tired EYES: [Pupils equal. Conjunctiva pale. HEENT: External appearance of nose and ears normal, oral cavity dry. NECK: JVD not raised; masses not palpable. HEART: First and second heart sounds are normal; no edema. LUNGS: Respiratory rate normal; clear to auscultation. ABDOMEN: Soft, nontender, liver spleen not palpable, no masses palpable. PSYCH: Alert and oriented x3; mood and affect normal. NEUROLOGICAL: Skeletal facial muscles are weak. Unable to fully close the left eye., Multiple sport of the right, less so wrinkling on the left forehead. No other focal findings . INVESTIGATIONS, reviewed in the clinical context: Potassium 3.3 magnesium 1.3 Previous testing White count 8.4 hemoglobin 12.3 platelets were 258 potassium 3.9 creatinine 0.66 Calcium 10.7. Magnesium 1 UA positive for leukoesterase WBC Assessment: -Persistent nausea vomiting, patient had been started on scopolamine patch, Reglan was added, some improvement -Clinical dehydration from persistent nausea for last 3 weeks. Patient been hardly able to keep any food down. 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 That is being looked into. Plan: MRI still pending. Did discuss with anesthesia about risk assessment for the procedure. Procedure Will be done in a morer supervised setting. EGD came back unremarkable later.total time spent today was about 45 minutes with over 25 minutes of discussion including that with the patient and .
[2019-08-16] MEDS: ONDANSETRON 4 MG/2 ML VIAL IVP SCH ×4 (00:17→17:50)
[2019-08-16] MEDS: METOCLOPRAMIDE 5 MG/ML 2 ML VIAL IVP SCH ×4 (00:17→17:50)
[2019-08-16] MEDS: LACTATED RINGERS 1,000 ML IV SCH ×4 (00:17→21:03)
[2019-08-16] MEDS: Acetaminophen-Codeine 300-30mg TAB PO PRN ×3 (06:26→16:08)
[2019-08-16 07:46] LABS: HCT 33.1 % (34.0-46.0); HGB 11.2 gm/dL (11.4-16.0); MCH 34.3 pg (25.0-35.0); MCHC 33.8 g/dL (31.0-37.0); MCV 101.5 fL (80.0-100.0); Platelet Count 169 k/uL (150-450); RBC 3.26 m/uL (3.80-5.40); RDW 12.9 % (11.5-15.5); WBC 8.1 k/uL (3.8-10.6)
[2019-08-16] MEDS: MAGNESIUM OXIDE 400 MG TAB PO SCH ×3 (07:51→21:03)
[2019-08-16] MEDS: PANTOPRAZOLE 40 MG/10 ML VIAL IVP SCH ×2 (07:51→21:03)
[2019-08-16 07:57] LABS: African American GFR (CKD) >90 (>60 ml/min/1.73 sqM); Anion Gap 13 mmol/L; Blood Urea Nitrogen 10 mg/dL (7-17); Calcium 9.1 mg/dL (8.4-10.2); Carbon Dioxide 26 mmol/L (22-30); Chloride 89 mmol/L (98-107); Glucose 118 mg/dL (74-99); Non-African American GFR(CKD) >90 (>60 ml/min/1.73 sqM); Potassium 2.8 mmol/L (3.5-5.1); Sodium 128 mmol/L (137-145)
[2019-08-16] MEDS ORDERED: Potassium Replacement Protocol 1 EACH MISC MISCELLANE PRN (10:38)
[2019-08-16] MEDS: POTASSIUM CHLORIDE 10 MEQ in WATER FOR INJECTION 1 100ML.BAG IVPB SCH ×6 (11:31→17:47)
[2019-08-16 16:03] VITALS: BMI 25.8
[2019-08-16] MEDS: PARoxetine 20 MG TAB PO SCH (21:03)
[2019-08-16] MEDS: ENOXAPARIN 40 MG/0.4 ML SYRINGE SQ SCH (21:03)
[2019-08-17] MEDS: ONDANSETRON 4 MG/2 ML VIAL IVP SCH ×5 (00:50→23:45)
[2019-08-17] MEDS: METOCLOPRAMIDE 5 MG/ML 2 ML VIAL IVP SCH ×5 (00:50→23:45)
[2019-08-17] MEDS: LACTATED RINGERS 1,000 ML IV SCH ×4 (05:04→22:20)
[2019-08-17] MEDS: Acetaminophen-Codeine 300-30mg TAB PO PRN ×2 (05:05→13:29)
[2019-08-17] MEDS: PANTOPRAZOLE 40 MG/10 ML VIAL IVP SCH ×2 (08:16→22:00)
[2019-08-17] MEDS: MAGNESIUM OXIDE 400 MG TAB PO SCH ×3 (08:17→22:01)
[2019-08-17 09:45] LABS: Magnesium 1.1 mg/dL (1.6-2.3)
[2019-08-17] MEDS ORDERED: Magnesium Replacement Protocol 1 EACH MISC MISCELLANE PRN (11:19)
--- NOTE | 2019-08-17 12:00 | ECHOF ---
Referral Reason:Weakness MEASUREMENTS -------- HEIGHT: 167.6 cm WEIGHT: 72.6 kg BP: 179/90 RVIDd: 3.4 cm (< 3.3) IVSd: 1.1 cm (0.6 - 1.1) LVIDd: 4.6 cm (3.9 - 5.3) LVPWd: 1.1 cm (0.6 - 1.1) IVSs: 1.5 cm LVIDs: 3.1 cm LVPWs: 1.4 cm LA Diam: 3.9 cm (2.7 - 3.8) Ao Diam: 3.0 cm (2.0 - 3.7) AV Cusp: 2.1 cm (1.5 - 2.6) MV EXCURSION: 16.594 mm (> 18.000) MV EF SLOPE: 44 mm/s (70 - 150) EPSS: 0.4 cm MV E Joaquim: 0.67 m/s MV DecT: 296 ms MV A Joaquim: 0.90 m/s MV E/A Ratio: 0.75 RAP: 5.00 mmHg RVSP: 20.73 mmHg FINDINGS -------- Sinus rhythm. This was a technically adequate study. The left ventricular size is normal. There is borderline concentric left ventricular hypertrophy. Overall left ventricular systolic function is normal with, an EF between 60 - 65 %. The right ventricle is mildly enlarged. The left atrial size is normal. The right atrium is normal in size. Interatrial and interventricular septum intact. The aortic valve is trileaflet and appears structurally normal. The mitral valve is normal. Mild tricuspid regurgitation present. Right ventricular systolic pressure is normal at < 35 mmHg. There is no pulmonic regurgitation present. The aortic root size is normal. Normal inferior vena cava with normal inspiratory collapse consistent with estimated right atrial pre ssure of 5 mmHg. There is no pericardial effusion. CONCLUSIONS -------- 1. Sinus rhythm. 2. This was a technically adequate study. 3. The left ventricular size is normal. 4. There is borderline concentric left ventricular hypertrophy. 5. Overall left ventricular systolic function is normal with, an EF between 60 - 65 %. 6. The right ventricle is mildly enlarged. 7. The left atrial size is normal. 8. The right atrium is normal in size. 9. Interatrial and interventricular septum intact. 10. The aortic valve is trileaflet and appears structurally normal. 11. The mitral valve is normal. 12. Mild tricuspid regurgitation present. 13. Right ventricular systolic pressure is normal at < 35 mmHg. 14. There is no pulmonic regurgitation present. 15. The aortic root size is normal. 16. Normal inferior vena cava with normal inspiratory collapse consistent with estimated right atrial pressure of 5 mmHg. 17. There is no pericardial effusion. [employer]UNTER: Cherelle Snyder RDCS
[2019-08-17] MEDS: POTASSIUM CHLORIDE 20 MEQ in WATER FOR INJECTION 1 100ML.BAG IVPB SCH ×2 (12:21→14:33)
[2019-08-17] MEDS: MAGNESIUM SULFATE-D5W PMX 1 GM in DEXTROSE/WATER 1 100ML.BAG IVPB SCH ×3 (12:25→14:35)
--- NOTE | 2019-08-17 13:17 | US ---
EXAMINATION TYPE: US carotid duplex RT DATE OF EXAM: 08/17/2019 COMPARISON: NONE CLINICAL HISTORY: weakness. Patient is laying on her left side and will not lie on her back or turn o nto her right side. Unable to scan left side. EXAM MEASUREMENTS: RIGHT: Peak Systolic Velocity (PSV) cm/sec ----- Right CCA: 71.6 ----- Right ICA: 97.7 ----- Right ECA: 104.2 ICA/CCA ratio: 1.4 RIGHT: End Diastole cm/sec ----- Right CCA: 15.5 ----- Right ICA: 23.3 ----- Right ECA: 14.2 VERTEBRALS (direction of flow): Right Vertebral: Antegrade Rhythm: Normal Mild amount of plaque visualized in right bulb. No elevated velocities, no significant stenosis. IMPRESSION: No evidence for hemodynamically significant stenosis at this time. Criteria for Assigning % of Stenosis / Diameter reduction (Estimation based on the indirect measurements of the internal carotid artery velocities (ICA PSV). 1. Normal (no stenosis)=ICA PSV < 125 cm/s: ratio < 2.0: ICA EDV<40 cm/s. 2. Less than 50% stenosis=ICA PSV < 125 cm/s: ratio < 2.0: ICA EDV<40 cm/s. 3. 50 to 69% stenosis=ICA PSV of 125 to 230 cm/s: ration 2.0 ? 4.0: ICA EDV 40-100 cm/s. 4. Greater than 70% stenosis to near occlusion= ICA PSV > 230 cm/s: ratio > 4.0: ICA EDV > 100 cm/s. 5. Near occlusion= ICA PSV velocities may be low or undetectable: variable ratio and ICA EDV. 6. Total occlusion=unable to detect flow.
[2019-08-17] MEDS ORDERED: HYDROmorphone 0.5 MG/0.5 ML SYRINGE IVP STA (16:06)
--- NOTE | 2019-08-17 17:26 | MR ---
EXAMINATION TYPE: MR brain wo/w con DATE OF EXAM: 08/17/2019 COMPARISON: None HISTORY: Left facial weakness CONTRAST: Standard multiplanar, multisequence MRI departmental protocol utilizing 7.5 mL intravenous Gadavist g adolinium contrast. There are numerous ring-enhancing lesions within the brain in multiple areas of variable size. Larges t is in the left occipital lobe and measures 2.5 cm. There is 15 mm lesion left parietal lobe. There is 8 mm lesion in the anterior left internal capsule. There is 11 mm lesion right posterior temporal lobe. There are 2 lesions in the left cerebral hemisphere that measure up to 1.6 cm. The brainstem is intact. There is 5 mm lesion in the right cerebellar hemisphere posteriorly. There is 10 mm enhancin g area inferior right temporal lobe. There is mild surrounding edema around the multiple enhancing le sions. There is a 15 mm area of increased signal without enhancement involving the left cerebellar pe duncle. There is 10 mm enhancing lesion right inferior frontal lobe adjacent to the sphenoid bone. There is no midline shift. There is no sign of intracranial hemorrhage. IMPRESSION: Numerous intra-axial enhancing lesions in both cerebral hemispheres and the cerebellum consistent wit h metastatic disease.
--- NOTE | 2019-08-17 20:26 | P.PN ---
Progress Note - Text Progress Note Date: 08/16/19 Chief Complaint: Weak and tired Interval history: This is a pleasant 63-year-old patient of Dr. Gregorio Rangel. Patient has a diagnosis of uterine cancer. Did undergo total history.. Patient had 2 rounds of chemotherapy for positive lymph nodes. Second one being completed in September of this year. Patient has been on a maintenance medication. For 3 weeks patient started having nausea vomiting predominantly dry heaving. Unable to keep any food down. Progressively has gotten worse. 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 Decided to come in. I noticed that patient's left side of the face is weak she thinks this may be present for over 2 weeks not sure. She has some water from the left eye. No change in speech. No headache. No other focal weakness. admitted with severe dehydration, electrolyte abnormalities, and new onset of left facial weakness. Scopolamine patch and Reglan was added. EGD showed-mild gastritis Today-. Still having nausea. Feeling weak and tired. GI has been on the case. Facial asymmetry still present. Barely eating Review of systems: Was done for constitutional, cardiovascular, GI, pulmonary. relevant finding as above Current medications reviewed in today's electronic records Physical examination: VITAL SIGNS: 97.4, 83, 16, 164/92, 94% room air GENERAL: Laying in bed, tired EYES: Pupils equal. Conjunctiva pale. HEENT: External appearance of nose and ears normal, oral cavity dry. NECK: JVD not raised; masses not palpable. HEART: First and second heart sounds are normal; no edema. LUNGS: Respiratory rate normal; clear to auscultation. ABDOMEN: Soft, nontender, liver spleen not palpable, no masses palpable. PSYCH: Alert and oriented x3; mood and affect tired. NEUROLOGICAL: Skeletal facial muscles are weak. Unable to fully close the left eye., less wrinkling on the left forehead. No other focal findings . INVESTIGATIONS, reviewed in the clinical context: White count 8.1 hemoglobin 11.2 potassium 2.8 Previous testing White count 8.4 hemoglobin 12.3 platelets were 258 potassium 3.9 creatinine 0.66 Calcium 10.7. Magnesium 1 UA positive for leukoesterase WBC Assessment: -Persistent nausea vomiting, patient had been started on scopolamine patch, Reglan was added, still having some nausea -Clinical dehydration from persistent nausea for last 3 weeks. Patient been hardly able to keep any food down. 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 That is being looked into. -Severe hypokalemia Plan: EGD has been unremarkable. Pending MRI. Follow with GI. We'll only proceed further once I can get the MRI done. Other medications according to.
[2019-08-17] MEDS ORDERED: DEXAMETHASONE SOD PHOSPHATE 4 MG/ML 1 ML VIAL IV SCH (20:30)
--- NOTE | 2019-08-17 20:35 | P.PN ---
Progress Note - Text Progress Note Date: 08/17/19 Chief Complaint: Weak and tired Interval history: This is a pleasant 63-year-old patient of Dr. Gregorio Rangel. Patient has a diagnosis of uterine cancer. Did undergo total hysterectomy.. Patient had 2 rounds of chemotherapy for positive lymph nodes. Second one being completed in September of this year. Patient has been on a maintenance medication. For 3 weeks patient started having nausea vomiting predominantly dry heaving. Unable to keep any food down. Progressively has gotten worse. 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 Decided to come in. I noticed that patient's left side of the face is weak she thinks this may be present for over 2 weeks not sure. She has some water from the left eye. No change in speech. No headache. No other focal weakness. admitted with severe dehydration, electrolyte abnormalities, and new onset of left facial weakness. Scopolamine patch and Reglan was added. EGD showed-mild gastritis Today-. More tired today. But I could not be done as patient could not lay still. Speech is a bit slurred today. Neurology was consulted this morning. Ordered premedication for MRI to get done. Oral intake poor. Getting IV fluids. Review of systems: Was done for constitutional, cardiovascular, GI, pulmonary. relevant finding as above Active Medications Acetaminophen/Codeine Phosphate (Tylenol #3) 1 each PO Q4HR PRN PRN Reason: Moderate Pain Last Admin: 08/17/19 13:29 Dose: 1 each Documented by: Dexamethasone Sodium Phosphate (Decadron) 4 mg IV Q6HR [facility] Enoxaparin Sodium (Lovenox) 40 mg SQ DAILY@2100 [facility] Last Admin: 08/16/19 21:03 Dose: 40 mg Documented by: Ceftriaxone Sodium 1 gm/ (Sodium Chloride) 50 mls @ 100 mls/hr IVPB Q24H [facility] Last Admin: 08/17/19 00:50 Dose: 100 mls/hr Documented by: Lactated Ringer's (Lactated Ringers) 1,000 mls @ 100 mls/hr IV .Q10H [facility] Magnesium Oxide (Mag-Ox) 400 mg PO TID [facility] Last Admin: 08/17/19 16:12 Dose: Not Given Documented by: Metoclopramide HCl (Reglan) 10 mg IVP Q6HR [facility] Last Admin: 08/17/19 16:58 Dose: 10 mg Documented by: Miscellaneous Information (Potassium Per Protocol) 1 each MISCELLANE DAILY PRN; Protocol PRN Reason: Per Protocol Miscellaneous Information (Magnesium Per Protocol) 1 each MISCELLANE DAILY PRN; Protocol PRN Reason: Per Protocol Naloxone HCl (Narcan) 0.2 mg IV Q2M PRN PRN Reason: Opioid Reversal Ondansetron HCl (Zofran) 4 mg IVP Q6HR [facility] Last Admin: 08/17/19 16:58 Dose: 4 mg Documented by: Pantoprazole Sodium (Protonix) 40 mg IVP BID [facility] Last Admin: 08/17/19 08:16 Dose: 40 mg Documented by: Paroxetine HCl (Paxil) 20 mg PO HS [facility] Last Admin: 08/16/19 21:03 Dose: 20 mg Documented by: Scopolamine (Transderm-Scop 1.5mg/72hr Patch) 1 patch TRANSDERM Q72H [facility] Last Admin: 08/15/19 22:16 Dose: 1 patch Documented by: Physical examination: VITAL SIGNS: 98.5, 87, 16, 142/85, 97% room air GENERAL: Laying in bed, tired EYES: Pupils equal. Conjunctiva pale. HEENT: External appearance of nose and ears normal, oral cavity dry. NECK: JVD not raised; masses not palpable. HEART: First and second heart sounds are normal; no edema. LUNGS: Respiratory rate normal; clear to auscultation. ABDOMEN: Soft, nontender, liver spleen not palpable, no masses palpable. PSYCH: Answering questions, tired. NEUROLOGICAL: Unable to fully close the left eye., less wrinkling on the left forehead. Speech a bit slurred INVESTIGATIONS, reviewed in the clinical context: Potassium 3 Previous testing White count 8.4 hemoglobin 12.3 platelets were 258 potassium 3.9 creatinine 0.66 Calcium 10.7. Magnesium 1 UA positive for leukoesterase WBC MRI-multiple ring-enhancing lesions in the brain and multiple areas of variable size. Assessment: -Multiple areas of metastatic disease in the brain.: New diagnosis -Persistent nausea vomiting, hypertension, etc. positive from metastatic disease of the brain., Uncontrolled -Clinical dehydration from persistent nausea for last 3 weeks. Patient been hardly able to keep any food down. 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 That is being looked into. -Severe hypokalemia, with some improvement Plan: IV Decadron 10mg every 6 hr be started. Neuro checks ordered. Neurology was consulted this morning. Decrease IV fluids 200 mL an hour. Oncology consulted. Prognosis not good. We'll discuss with the patient and .
[2019-08-17] MEDS: DEXAMETHASONE SOD PHOSPHATE 10 MG/ML 1 ML VIAL IV SCH (22:00)
[2019-08-17] MEDS: ENOXAPARIN 40 MG/0.4 ML SYRINGE SQ SCH (22:00)
[2019-08-17] MEDS: PARoxetine 20 MG TAB PO SCH (22:01)
--- NOTE | 2019-08-17 23:33 | P.CNNES ---
History of Present Illness Consult date: 08/17/19 Reason for Consult: slurred speech, increased weakness History of Present Illness: HISTORY OF PRESENT ILLNESS: Thank you for allowing me to evaluate Ms. Kenisha Wong. Ms. Wong is a 63 year-old woman with PMhx of uterine Cancer, in remission, presented to [facility] for generalized weakness, consulting Neurology for worsening weakness along with slurred speech. Difficult to get history from patient. She is very lethargic, wanting to sleep, saying statements such as, "am I going to soon." Per RN who has been taking care of patient for 3 days, she has gotten increasingly weaker where when she first came to the hospital on 08/12/19, she was able to walk around but she has been basically bed-bound for the last 3 days. Patient underwent EEG, which was unremarkable. Patient denies any headache, nausea, vomiting, dizziness, double/blurry vision. When asked about her L eye that is difficult to close, patient states that it's been that way for a long time. PAST MEDICAL HISTORY: Uterine Cancer, in remission. PAST SURGICAL HISTORY: Hysterectomy HOME MEDICATIONS: Vitamin D, Naproxen ALLERGIES: Carbolatin, Paclitaxel SOCIAL HISTORY: Never smoker REVIEW OF SYSTEMS: The 14 systems are reviewed and no additional points are identified compared to the review of systems documented history and physical PHYSICAL EXAMINATION: VITAL SIGNS: T 98.1 HR 90 RR 20 BP 179/90 O2 sat 94% on RA GEN.: Lethargic but pleasant but not very cooperative HEENT: NCAT, sclera without icterus NECK: Supple SKIN AND EXTREMITIES: Warm to touch, no edema NEURO: MENTAL STATUS: Patient alert and oriented to self, place, time. Able to name the current president. Speech fluent, able to name and repeat, following most simple commands readily. CRANIAL NERVES II THROUGH XII: II: Pupils are equal and reactive to light symmetrically. III, IV, : L eye much larger than R eye. Patient with difficulty closing L eye and also lifting her L eyebrows. Extraocular movements full. No nystagmus. V: Facial sensation intact from V1-3. VII. L facial droop. XII: Tongue midline without fasciculation or atrophy.] MOTOR: Normal bulk/tone. Moves b/l UE spontaneously. Moves RLE spontaneously and on command. LLE does move spontaneously but patient unable to move it on command. REFLEXES: 2+ throughout. Toes are downgoing. COORDINATION/GAIT: deferred DIAGNOSTIC TESTING: LABORATORY: WBC 8.1 Hgb 11.2 Platelet 169 Na 128 K 2.8 Cl 89 CO2 26 BUN 10 Cr 0.46 glucose 118 IMAGING: TTE 08/17/19: SR. EF 60-65%. LA, RA, LV sizes are normal. RV mildly enlarged. interatrial and interventricular septum intact MRI brain w/ and w/o contrast 08/17/19: Numerous lesions that enhance with contrast in bilateral cerebral hemispheres and cerebellum. ASSESSMENT/RECOMMENDATIONS: 63 year-old woman with PMhx of uterine cancer, in remission, presented to [facility] for generalized weakness, consulting Neurology for worsening weakness along with slurred speech. Patient likely had a Wallace's palsy prior to this admission, but considering patient's increased weakness and history of cancer, MRI brain w/ and w/o contrast was appropriate, which showed likely multiple metastatic disease. No cerebral edema. Consider neurosurgical evaluation for possible radiation therapy. Also consider discussing goals of care questions. Neurology will sign off at this time. Please contact via [employer] over the weekend with additional questions or concerns. Past Medical History Past Medical History: Cancer Additional Past Medical History / Comment(s): UTERINE CANCER -IN REMISSION OF 07/2019 History of Any Multi-Drug Resistant Organisms: None Reported Past Surgical History: Hysterectomy Past Psychological History: No Psychological Hx Reported Smoking Status: Never smoker Past Alcohol Use History: None Reported Past Drug Use History: None Reported Medications and Allergies Home Medications Medication Instructions Recorded Confirmed Type PARoxetine [Paxil] 20 mg PO HS 08/12/19 08/12/19 History Allergies Allergy/AdvReac Type Severity Reaction Status Date / Time carboplatin Allergy Unknown Verified 08/12/19 13:54 paclitaxel [From Taxol] Allergy Unknown Verified 08/12/19 13:54 Physical Examination - Vital Signs Vital Signs: Vital Signs Temp Pulse Resp BP BP Pulse Ox 08/17/19 08:00 20 08/17/19 04:45 98.1 F 90 20 179/90 94 L 08/16/19 21:30 97.9 F 89 20 153/82 97 08/16/19 15:44 16 08/16/19 14:16 97.4 F L 83 16 164/92 94 L Intake and Output 08/16/19 08/17/19 08/17/19 22:59 06:59 14:59 Intake Total 10 0 Balance 10 0 Intake: Oral 10 0 Other: Voiding Method Bedpan Bedpan Bedpan Diaper Diaper Incontinent Incontinent # Voids 1 2 Weight 72.575 kg Results - Laboratory Findings CBC and BMP: 08/16/19 07:31 08/17/19 08:38 Abnormal Lab Findings: Abnormal Labs 08/12/19 08/12/19 08/12/19 10:56 10:56 10:56 RBC 3.52 L Hgb Hct MCV 104.9 H Lymphocytes # 0.5 L APTT 20.7 L Sodium 136 L Potassium Chloride Creatinine Glucose 145 H POC Glucose (mg/dL) Calcium 10.7 H Magnesium Urine Appearance Urine Protein Urine Ketones Ur Leukocyte Esterase Urine WBC Ur Squamous Epith Cells Urine Bacteria Urine Mucus 08/12/19 08/12/19 08/13/19 10:56 12:45 07:15 RBC Hgb Hct MCV Lymphocytes # APTT Sodium 135 L Potassium Chloride Creatinine Glucose 115 H POC Glucose (mg/dL) Calcium Magnesium 1.0 L 1.2 L Urine Appearance Cloudy H Urine Protein Trace H Urine Ketones 2+ H Ur Leukocyte Esterase Moderate H Urine WBC 6 H Ur Squamous Epith Cells 5 H Urine Bacteria Rare H Urine Mucus Few H 08/13/19 08/14/19 08/16/19 20:30 11:06 07:31 RBC 3.26 L Hgb 11.2 L Hct 33.1 L MCV 101.5 H Lymphocytes # APTT Sodium 132 L Potassium 3.3 L Chloride 94 L Creatinine Glucose 107 H POC Glucose (mg/dL) 130 H Calcium Magnesium 1.3 L Urine Appearance Urine Protein Urine Ketones Ur Leukocyte Esterase Urine WBC Ur Squamous Epith Cells Urine Bacteria Urine Mucus 08/16/19 08/17/19 07:31 08:38 RBC Hgb Hct MCV Lymphocytes # APTT Sodium 128 L Potassium 2.8 L 3.0 L Chloride 89 L Creatinine 0.46 L Glucose 118 H POC Glucose (mg/dL) Calcium Magnesium 1.0 L 1.1 L Urine Appearance Urine Protein Urine Ketones Ur Leukocyte Esterase Urine WBC Ur Squamous Epith Cells Urine Bacteria Urine Mucus
[2019-08-18] MEDS: DEXAMETHASONE SOD PHOSPHATE 10 MG/ML 1 ML VIAL IV SCH ×3 (03:57→16:52)
[2019-08-18] MEDS: ONDANSETRON 4 MG/2 ML VIAL IVP SCH ×4 (05:16→23:55)
[2019-08-18] MEDS: METOCLOPRAMIDE 5 MG/ML 2 ML VIAL IVP SCH ×4 (05:17→23:54)
[2019-08-18] MEDS: MAGNESIUM OXIDE 400 MG TAB PO SCH ×3 (08:10→21:19)
[2019-08-18] MEDS: PANTOPRAZOLE 40 MG/10 ML VIAL IVP SCH (08:17)
[2019-08-18] MEDS: LACTATED RINGERS 1,000 ML IV SCH ×2 (08:18→17:07)
[2019-08-18 08:35] LABS: Magnesium 1.3 mg/dL (1.6-2.3); Potassium 3.4 mmol/L (3.5-5.1)
[2019-08-18] MEDS ORDERED: Potassium Replacement Protocol 1 EACH MISC MISCELLANE PRN (09:40)
[2019-08-18] MEDS ORDERED: Magnesium Replacement Protocol 1 EACH MISC MISCELLANE PRN (09:40)
[2019-08-18] MEDS: MAGNESIUM SULFATE-D5W PMX 1 GM in DEXTROSE/WATER 1 100ML.BAG IVPB SCH ×3 (10:01→12:32)
[2019-08-18] MEDS: Acetaminophen-Codeine 300-30mg TAB PO PRN (13:59)
[2019-08-18] MEDS: POTASSIUM CHLORIDE 20 MEQ in WATER FOR INJECTION 1 100ML.BAG IVPB SCH ×2 (14:00→16:58)
[2019-08-18] MEDS ORDERED: IOPAMIDOL CONTRAST (ORAL USE) VIAL PO PRN (16:16)
[2019-08-18] MEDS: DEXAMETHASONE SOD PHOSPHATE 4 MG/ML 1 ML VIAL IV SCH ×2 (16:58→23:54)
[2019-08-18] MEDS: ENOXAPARIN 40 MG/0.4 ML SYRINGE SQ SCH (21:17)
[2019-08-18] MEDS: PANTOPRAZOLE 40 MG TABLET PO SCH (21:17)
[2019-08-18] MEDS: PARoxetine 20 MG TAB PO SCH (21:17)
--- NOTE | 2019-08-18 21:20 | CONS ---
CONSULTATION DATE OF SERVICE: August 18, 2019. REASON FOR CONSULTATION: Brain metastases. CHIEF COMPLAINT: Weak. HISTORY OF PRESENT ILLNESS: Kenisha is a pleasant 63 years old lady who has been having issue with nausea, vomiting, and predominantly dry heaves and unable to keep any food down over the last 3 weeks which has gotten progressively worse. The patient was brought into the emergency department. She was found to be dehydrated. She has hypokalemia and she ended up having a brain MRI which unfortunately revealed numerous brain lesions in both cerebral hemispheres and cerebellum consistent with metastatic disease. The patient ended up being admitted to the hospital. She was started on IV Decadron. Apparently the patient was diagnosed with uterine carcinoma in 2014 and she has been treated by Dr. Montes De Oca at [facility] in [place]. She had surgery followed by adjuvant chemotherapy and radiation therapy. Then 2 years later, she had recurrence of her disease and she was treated with 6 cycles of chemotherapy. The exact chemotherapy is not known to me, and then she was put on oral PARP inhibitor until May of this year and then she was taken off the PARP inhibitor by Dr. Montes De Oca due to lack of response. Information however was provided by the patient's . As stated above, the patient has had has had progressive nausea, vomiting, inability to keep food down and losing balance going on for about 3 weeks. It got progressively worse. There is no reported fevers or chills. She has lost weight. REVIEW OF SYSTEMS: A detailed review of systems could not be fully obtained from the patient. PAST FAMILY MEDICAL HISTORY: Per record as stated above, she has a history of uterine cancer and she had a hysterectomy in the past. SOCIAL HISTORY: Per record, no history of smoking, alcohol abuse or substance abuse. FAMILY HISTORY: The family history could not be obtained from the patient. Review of systems as much as could be obtained in the history of present illness, otherwise difficult to obtain from the patient. PHYSICAL EXAMINATION: On physical examination she is dysarthric and she is somewhat confused. She does answer some questions appropriately. She does not appear to be in pain. Her vital signs are temperature 98.7 afebrile, pulse 93, regular, respiration 18, blood pressure 169/95. HEENT: She has left facial weakness noted. Neck is supple. Chest equal expansion bilaterally. Lungs are clear to auscultation. Heart is regular rate and rhythm. Abdomen is soft. No tenderness. Extremities: There is no edema. LYMPHATICS: No peripherally enlarged cervical or supraclavicular lymphadenopathy. Musculoskeletal: She is having a hard time raising her arm She does not follow commands appropriately. LABORATORY: Laboratory data WBC are 8.1, hemoglobin 11.2, hematocrit 33.1, platelet 169. Sodium 128, potassium 2.8, chloride 89, and creatinine 0.4. IMPRESSION: 1. Persistent nausea or vomiting, likely related to diffuse brain metastases on recent MRI. 2. Dehydration and electrolyte imbalance secondary to above. 3. Uterine carcinoma as stated above. RECOMMENDATIONS: 1. Continue IV steroids. 2. I did call her and obtained the above history from him. He is not specific exactly what kind of chemo she had received in the past. We will try to contact Dr. Montes De Oca to obtain more detailed oncological history. 3. I would recommend to obtain a CT scan of the chest, abdomen and pelvis to evaluate the extent of the liver disease. 4. We will obtain a consultation with Radiation Oncology. However, if she has extensive extracranial metastases as well, then probably the patient should be served with comfort care only. Her overall prognosis appears to be poor. The above was discussed with her over the phone today and I have answered all his questions. Thank you very much for asking me to participate in the care of this nice lady. MMJUNO / CLAYN: [id number] /
--- NOTE | 2019-08-18 21:43 | CT ---
EXAMINATION TYPE: CT ChestAbdPelvis w con DATE OF EXAM: 08/18/2019 COMPARISON: None HISTORY: Metastatic cancer. CT DLP: 909.9 mGycm Automated exposure control for dose reduction was used. CONTRAST: CT scan of the chest, abdomen and pelvis is performed without Oral Contrast and with IV Contrast, pat ient injected with 100 mL of Isovue 300. FINDINGS: There is a Port-A-Cath in the right pectoral region and coursing via right internal jugular vein approach. Nonenlarged supraclavicular node present on the left. LUNGS: Some groundglass opacity present in the left upper lobe, left lower lobe, bandlike area of inc reased attenuation at the left lung base likely reflects scarring or atelectasis. No evident lung mas s. There is no pleural or pericardial effusion. Heart is enlarged. MEDIASTINUM: There are no greater than 1 cm hilar or mediastinal lymph nodes. No pericardial effusi on is seen. AORTA: No significant abnormality is seen. OTHER: No additional significant abnormality is seen. LIVER/GB: Low dense foci within the liver are indeterminate, approximately 3 lesions are present in t he left lobe, the largest measuring only 1 cm in size, in the posterior right lobe lobe dense focus i s 2.6 cm and shows cystic appearance PANCREAS: No significant abnormality is seen. SPLEEN: No significant abnormality is seen. ADRENALS: No significant abnormality is seen. KIDNEYS: Parapelvic cysts noted within the left kidney.. REPRODUCTIVE ORGANS: Not seen. BOWEL: No significant abnormality is seen. FREE AIR: No Free Air visible. ASCITES: None seen. RETROPERITONEAL ADENOPATHY: There are some retroperitoneal nodes between the aorta and inferior vena cavaborderline with enlargement, abdominal aorta distally shows some abnormal soft tissue at the lev el of the origin of the inferior mesenteric artery LYMPH NODES: No greater than 1 cm abdominal or pelvic lymph nodes are appreciated. URINARY BLADDER: No significant abnormality is seen. PELVIC ADENOPATHY: None visualized. OSSEOUS STRUCTURES: No significant abnormality is seen. IMPRESSION: Borderline enlargement of a lymph node at the level posterior to the inferior vena cava l evel of the renal vein. Abnormal soft tissue at the level of the aortic bifurcation.
--- NOTE | 2019-08-18 22:12 | P.PN ---
Progress Note - Text Progress Note Date: 08/18/19 Chief Complaint: Weak and tired Interval history: This is a pleasant 63-year-old patient of Dr. Gregorio Rangel. Patient has a diagnosis of uterine cancer. Did undergo total hysterectomy.. Patient had 2 rounds of chemotherapy for positive lymph nodes. Second one being completed in September of this year. Patient has been on a maintenance medication. For 3 weeks patient started having nausea vomiting predominantly dry heaving. Unable to keep any food down. Progressively has gotten worse. 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 Decided to come in. I noticed that patient's left side of the face is weak she thinks this may be present for over 2 weeks not sure. She has some water from the left eye. No change in speech. No headache. No other focal weakness. admitted with severe dehydration, electrolyte abnormalities, and new onset of left facial weakness. Scopolamine patch and Reglan was added. EGD showed-mild gastritis. MRI of the brain showed multiple metastatic lesions. Patient was started on IV steroids. Today-. Patient appears to be more alert today. Tired. Nausea still present. On IV steroids. Weak and tired.. Review of systems: Was done for constitutional, cardiovascular, GI, pulmonary. relevant finding as above Active Medications Acetaminophen/Codeine Phosphate (Tylenol #3) 1 each PO Q4HR PRN PRN Reason: Moderate Pain Last Admin: 08/18/19 13:59 Dose: 1 each Documented by: Dexamethasone Sodium Phosphate (Decadron) 4 mg IV Q6HR [facility] Last Admin: 08/18/19 16:58 Dose: 4 mg Documented by: Enoxaparin Sodium (Lovenox) 40 mg SQ DAILY@2100 [facility] Last Admin: 08/18/19 21:17 Dose: 40 mg Documented by: Ceftriaxone Sodium 1 gm/ (Sodium Chloride) 50 mls @ 100 mls/hr IVPB Q24H [facility] Last Admin: 08/17/19 22:01 Dose: 100 mls/hr Documented by: Lactated Ringer's (Lactated Ringers) 1,000 mls @ 100 mls/hr IV .Q10H [facility] Last Admin: 08/18/19 17:07 Dose: Not Given Documented by: Iopamidol (Isovue-300 (For Oral Use)) 30 ml PO Q60M PRN PRN Reason: CT Scan Stop: 12/22/19 16:17 Magnesium Oxide (Mag-Ox) 400 mg PO TID [facility] Last Admin: 08/18/19 21:19 Dose: 400 mg Documented by: Metoclopramide HCl (Reglan) 10 mg IVP Q6HR [facility] Last Admin: 08/18/19 16:59 Dose: 10 mg Documented by: Miscellaneous Information (Potassium Per Protocol) 1 each MISCELLANE DAILY PRN; Protocol PRN Reason: Per Protocol Miscellaneous Information (Magnesium Per Protocol) 1 each MISCELLANE DAILY PRN; Protocol PRN Reason: Per Protocol Miscellaneous Information (Potassium Per Protocol) 1 each MISCELLANE DAILY PRN; Protocol PRN Reason: Per Protocol Miscellaneous Information (Magnesium Per Protocol) 1 each MISCELLANE DAILY PRN; Protocol PRN Reason: Per Protocol Naloxone HCl (Narcan) 0.2 mg IV Q2M PRN PRN Reason: Opioid Reversal Ondansetron HCl (Zofran) 4 mg IVP Q6HR [facility] Last Admin: 08/18/19 16:58 Dose: 4 mg Documented by: Pantoprazole Sodium (Protonix) 40 mg PO BID [facility] Last Admin: 08/18/19 21:17 Dose: 40 mg Documented by: Paroxetine HCl (Paxil) 20 mg PO HS [facility] Last Admin: 08/18/19 21:17 Dose: 20 mg Documented by: Scopolamine (Transderm-Scop 1.5mg/72hr Patch) 1 patch TRANSDERM Q72H [facility] Last Admin: 08/15/19 22:16 Dose: 1 patch Documented by: Physical examination: VITAL SIGNS: 97.6, 82, 16, 171/94, 93% room air GENERAL: Laying in bed, tired, bit more. Today EYES: Pupils equal. Conjunctiva pale. HEENT: External appearance of nose and ears normal, oral cavity dry. NECK: JVD not raised; masses not palpable. HEART: First and second heart sounds are normal; no edema. LUNGS: Respiratory rate normal; clear to auscultation. ABDOMEN: Soft, nontender, liver spleen not palpable, no masses palpable. PSYCH: Answering questions. NEUROLOGICAL: Unable to fully close the left eye., less wrinkling on the left forehead. Speech a bit slurred INVESTIGATIONS, reviewed in the clinical context: Potassium 3.4 magnesium 1.3 Computed tomography scan her chest abdomen and pelvis-some lymphadenopathy nonspecific soft tissue mass in the abdomen Previous testing White count 8.4 hemoglobin 12.3 platelets were 258 potassium 3.9 creatinine 0.66 Calcium 10.7. Magnesium 1 UA positive for leukoesterase WBC MRI-multiple ring-enhancing lesions in the brain and multiple areas of variable size. Assessment: -Multiple areas of metastatic disease in the brain.: New diagnosis -Persistent nausea vomiting, hypertension, etc. from metastatic disease of the brain., -Clinical dehydration from persistent nausea for last 3 weeks. Patient been hardly able to keep any food down. -Hypercalcemia from dehydration -Severe hypomagnesemia -Acute UTI with cystitis -Uterine cancer status post total hysterectomy and chemotherapy in the past -Left facial weakness from metastatic disease -Severe hypokalemia, with some improvement Plan: Continue with IV Decadron. Prognosis poor. Dr. Simon from oncology saw the patient today. He started to get in touch with her oncologist. is not present. I did inform the patient for MRI results. We'll talk to the patient and again when he is here.
[2019-08-18] MEDS ORDERED: HALOPERIDOL LACTATE 5 MG/ML 1 ML VIAL IM STA (23:35)
[2019-08-18] MEDS: SCOPOLAMINE 1.5MG/72HR PATCH TRANSDERM SCH (23:54)
[2019-08-19] MEDS: LACTATED RINGERS 1,000 ML IV SCH ×3 (04:07→20:53)
[2019-08-19] MEDS: METOCLOPRAMIDE 5 MG/ML 2 ML VIAL IVP SCH ×4 (05:59→23:16)
[2019-08-19] MEDS: DEXAMETHASONE SOD PHOSPHATE 4 MG/ML 1 ML VIAL IV SCH ×3 (05:59→17:36)
[2019-08-19] MEDS: ONDANSETRON 4 MG/2 ML VIAL IVP SCH ×4 (05:59→23:12)
[2019-08-19 07:31] LABS: African American GFR (CKD) >90 (>60 ml/min/1.73 sqM); Anion Gap 11 mmol/L; Blood Urea Nitrogen 14 mg/dL (7-17); Calcium 9.6 mg/dL (8.4-10.2); Carbon Dioxide 26 mmol/L (22-30); Chloride 95 mmol/L (98-107); Glucose 123 mg/dL (74-99); Magnesium 1.4 mg/dL (1.6-2.3); Non-African American GFR(CKD) >90 (>60 ml/min/1.73 sqM); Potassium 3.5 mmol/L (3.5-5.1); Sodium 132 mmol/L (137-145)
[2019-08-19 07:44] VITALS: RESP 16
[2019-08-19] MEDS: PANTOPRAZOLE 40 MG TABLET PO SCH ×2 (08:57→20:53)
[2019-08-19] MEDS: MAGNESIUM OXIDE 400 MG TAB PO SCH ×3 (08:57→20:53)
[2019-08-19] MEDS: Acetaminophen-Codeine 300-30mg TAB PO PRN (11:24)
[2019-08-19] MEDS: PARoxetine 20 MG TAB PO SCH (20:53)
[2019-08-19] MEDS: ENOXAPARIN 40 MG/0.4 ML SYRINGE SQ SCH (20:53)
--- NOTE | 2019-08-19 22:32 | P.PN ---
Progress Note - Text Progress Note Date: 08/19/19 Chief Complaint: Weak and tired Interval history: This is a pleasant 63-year-old patient of Dr. Gregorio Rangel. Patient has a diagnosis of uterine cancer. Did undergo total hysterectomy.. Patient had 2 rounds of chemotherapy for positive lymph nodes. Second one being completed in September of this year. Patient has been on a maintenance medication. For 3 weeks patient started having nausea vomiting predominantly dry heaving. Unable to keep any food down. Progressively has gotten worse. 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 Decided to come in. I noticed that patient's left side of the face is weak she thinks this may be present for over 2 weeks not sure. She has some water from the left eye. No change in speech. No headache. No other focal weakness. admitted with severe dehydration, electrolyte abnormalities, and new onset of left facial weakness. Scopolamine patch and Reglan was added. EGD showed-mild gastritis. MRI of the brain showed multiple metastatic lesions. Patient was started on IV steroids. Today-. patient would answer some questions. Total tired. Patient's friend and were the bedside.getting IV Decadron Review of systems: Was done for constitutional, cardiovascular, GI, pulmonary. relevant finding as above Active Medications Acetaminophen/Codeine Phosphate (Tylenol #3) 1 each PO Q4HR PRN PRN Reason: Moderate Pain Last Admin: 08/19/19 11:24 Dose: 1 each Documented by: Dexamethasone Sodium Phosphate (Decadron) 4 mg IV Q6HR ON LICENSE OF [facility] Last Admin: 08/19/19 17:36 Dose: 4 mg Documented by: Enoxaparin Sodium (Lovenox) 40 mg SQ DAILY@2100 ON LICENSE OF [facility] Last Admin: 08/19/19 20:53 Dose: 40 mg Documented by: Ceftriaxone Sodium 1 gm/ (Sodium Chloride) 50 mls @ 100 mls/hr IVPB Q24H ON LICENSE OF [facility] Last Admin: 08/19/19 22:03 Dose: 100 mls/hr Documented by: Lactated Ringer's (Lactated Ringers) 1,000 mls @ 100 mls/hr IV .Q10H ON LICENSE OF [facility] Last Admin: 08/19/19 20:53 Dose: 100 mls/hr Documented by: Magnesium Oxide (Mag-Ox) 400 mg PO TID ON LICENSE OF [facility] Last Admin: 08/19/19 20:53 Dose: 400 mg Documented by: Metoclopramide HCl (Reglan) 10 mg IVP Q6HR ON LICENSE OF [facility] Last Admin: 08/19/19 17:36 Dose: 10 mg Documented by: Miscellaneous Information (Potassium Per Protocol) 1 each MISCELLANE DAILY PRN; Protocol PRN Reason: Per Protocol Miscellaneous Information (Magnesium Per Protocol) 1 each MISCELLANE DAILY PRN; Protocol PRN Reason: Per Protocol Miscellaneous Information (Potassium Per Protocol) 1 each MISCELLANE DAILY PRN; Protocol PRN Reason: Per Protocol Miscellaneous Information (Magnesium Per Protocol) 1 each MISCELLANE DAILY PRN; Protocol PRN Reason: Per Protocol Naloxone HCl (Narcan) 0.2 mg IV Q2M PRN PRN Reason: Opioid Reversal Ondansetron HCl (Zofran) 4 mg IVP Q6HR ON LICENSE OF [facility] Last Admin: 08/19/19 17:36 Dose: 4 mg Documented by: Pantoprazole Sodium (Protonix) 40 mg PO BID ON LICENSE OF [facility] Last Admin: 08/19/19 20:53 Dose: 40 mg Documented by: Paroxetine HCl (Paxil) 20 mg PO HS ON LICENSE OF [facility] Last Admin: 08/19/19 20:53 Dose: 20 mg Documented by: Scopolamine (Transderm-Scop 1.5mg/72hr Patch) 1 patch TRANSDERM Q72H ON LICENSE OF [facility] Last Admin: 08/18/19 23:54 Dose: 1 patch Documented by: Physical examination: VITAL SIGNS: 97.8, 76, 16, 164/89, 96% room air GENERAL: Laying in bed, tired, ; awake EYES: Pupils equal. Conjunctiva pale. HEENT: External appearance of nose and ears normal, oral cavity dry. NECK: JVD not raised; masses not palpable. HEART: First and second heart sounds are normal; no edema. LUNGS: Respiratory rate normal; clear to auscultation. ABDOMEN: Soft, nontender, liver spleen not palpable, no masses palpable. PSYCH: Answering some questions. NEUROLOGICAL: Unable to fully close the left eye., less wrinkling on the left forehead. Speech a bit slurred INVESTIGATIONS, reviewed in the clinical context: Potassium 3.4 magnesium 1.3 Computed tomography scan her chest abdomen and pelvis-some lymphadenopathy nonspecific soft tissue mass in the abdomen Previous testing White count 8.4 hemoglobin 12.3 platelets were 258 potassium 3.9 creatinine 0.66 Calcium 10.7. Magnesium 1 UA positive for leukoesterase WBC MRI-multiple ring-enhancing lesions in the brain and multiple areas of variable size. Assessment: -Multiple areas of metastatic disease in the brain.: New diagnosis, slow to respond -Persistent nausea vomiting, hypertension, etc. from metastatic disease of the brain., -Clinical dehydration from persistent nausea for last 3 weeks. Patient been hardly able to keep any food down. -Hypercalcemia from dehydration -Severe hypomagnesemia -Acute UTI with cystitis -Uterine cancer status post total hysterectomy and chemotherapy in the past -Left facial weakness from metastatic disease -Severe hypokalemia, with some improvement -macrocytic anemia of malignancy, possibly nutritional too Plan: continue with IV Decadron. Prognosis guarded. IV fluids to continue. Advanced care planning: The patient's bedside had a lengthy discussion with the patient's and patient's friend is also present. He does reflect that patient disease is very advanced. And per patient's wishes from medical perspective does not want any aggressive treatment anymore. He has chosen to proceed with hospice. I gave as many details as possible. They have chosen [facility]. The electric take the patient home tomorrow. Several questions were answered. I did inform patient's nurse. 25 minutes was spent on this.
[2019-08-20] MEDS: DEXAMETHASONE SOD PHOSPHATE 4 MG/ML 1 ML VIAL IV SCH ×4 (01:13→16:55)
[2019-08-20] MEDS: METOCLOPRAMIDE 5 MG/ML 2 ML VIAL IVP SCH ×3 (05:40→16:54)
[2019-08-20] MEDS: ONDANSETRON 4 MG/2 ML VIAL IVP SCH ×3 (05:41→16:55)
[2019-08-20 05:56] VITALS: BP 177/91; PULSE 90; TEMP 97.9
[2019-08-20] MEDS: LACTATED RINGERS 1,000 ML IV SCH (06:50)
[2019-08-20] MEDS: MAGNESIUM OXIDE 400 MG TAB PO SCH ×2 (06:53→15:03)
[2019-08-20] MEDS: Acetaminophen-Codeine 300-30mg TAB PO PRN ×2 (06:53→10:58)
[2019-08-20] MEDS: PANTOPRAZOLE 40 MG TABLET PO SCH (06:54)
--- NOTE | 2019-08-20 07:45 | P.PN ---
Subjective this is a pleasant 63 years old female with past medical history of uterine cancer status post hysterectomy, and status post chemotherapy. 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 Brain imaging showing brain metastases on MRI with suspected facial weakness. Also patient has been evaluated by oncology team and they wanted to get the records for what kind of chemotherapy she received in the past, and recommended CT of the abdomen and chest and pelvis which did not show METASTATIC lesion other than multiple indeterminant liver lesions about 1 cm on the left side and 2.6 cm on the right side with some cystic changes and abnormal soft tissue at the level of the inferior mesenteric artery with an large abdominal lymph nodes, however they recommended to consult radiation oncology and keeping the patient on IV steroids which she is getting IV Decadron at 4 mg every 4 hours. Also she is on Rocephin for possible UTI.however patient is already received 7 days of antibiotic, therefore would not stop the antibiotics and we ordered a urine analysis, patient is still complaining of from lower abdominal pain about 7/10 with some tenderness, patient also has low appetite, her nausea vomiting stopped and she has been constipated for several days now as per patient. She was fully awake a nd oriented when I saw the patient she denies headache, she is not in distress. Labs are still pending. Patient is a stent in bed and she refusing to get out of bed, also she refused to participate in physical therapy evaluation when I talked to her today. Discussed with staff Objective - Vital Signs Vital signs: Vital Signs Temp 97.9 F 08/20/19 05:54 Pulse 90 08/20/19 05:54 Resp 16 08/20/19 05:54 BP 177/91 08/20/19 05:54 Pulse Ox 95 08/20/19 05:54 Intake & Output 08/19/19 08/20/19 08/20/19 18:59 06:59 18:59 Intake Total 200 Balance 200 Intake: Oral 200 Other: Voiding Method Diaper Diaper Incontinent Incontinent # Voids 2 6 # Bowel Movements 0 0 # Emeses 0 - Exam -GENERAL: The patient is alert and oriented x3, not in any acute distress. Well developed, well nourished. pale. Generally weak HEENT: Pupils are round and equally reacting to light. EOMI. No scleral icterus. No conjunctival pallor. Normocephalic, atraumatic. No pharyngeal erythema. No thyromegaly. CARDIOVASCULAR: S1 and S2 present. No murmurs, rubs, or gallops. PULMONARY: Chest is clear to auscultation, no wheezing or crackles. -ABDOMEN: Soft, lower abdominal tenderness with no rebound tenderness or guarding, nondistended, normoactive bowel sounds. No palpable organomegaly. MUSCULOSKELETAL: No joint swelling or deformity. EXTREMITIES: No cyanosis, clubbing, or pedal edema. NEUROLOGICAL: Gross neurological examination did not reveal any focal deficits. SKIN: No rashes. no petechiae. - Labs CBC & Chem 7: 08/16/19 07:31 08/19/19 06:51 Assessment and Plan Assessment: -uterine cancer status post hysterectomy and chemotherapy -Multiple areas of metastatic disease in the brain. with left facial weaknessNew diagnosis -intractable nausea vomiting, with mild gastritis. Improved now -dehydration from persistent nausea for last 3 weeks. improved with IV hydration -hypomagnesemia, and hypokalemia -Acute UTI with cystitis, treated -macrocytic anemia of malignancy, possibly nutritional too Plan: this is a pleasant 63 years old female who presents with uterine cancer with brain metastases, oncologist recommended radiation oncology consult after CT of the chest and abdomen was done. Patient is not eating much with low appetite and refusing physical therapy. Encourage hydration, repeat urine analysis.this patient would not benefit from therapy or Marcia indicated for her then possibly she might need comfort care measures be considered Labs and medication were reviewed.. Continue same treatment. Continue with symptomatic treatment. Resume home medication. Monitor lytes and vitals. DVT and GI prophylaxis. Further recommendations of the clinical course of the patient DVT prophylaxis: Subcutaneous Lovenox GI Prophylaxis: Protonix PT/OT: patient refused Prognosis is guarded
[2019-08-20 08:16] LABS: African American GFR (CKD) >90 (>60 ml/min/1.73 sqM); Anion Gap 10 mmol/L; Blood Urea Nitrogen 14 mg/dL (7-17); Calcium 9.6 mg/dL (8.4-10.2); Carbon Dioxide 27 mmol/L (22-30); Chloride 92 mmol/L (98-107); Glucose 124 mg/dL (74-99); Magnesium 1.1 mg/dL (1.6-2.3); Non-African American GFR(CKD) >90 (>60 ml/min/1.73 sqM); Potassium 3.5 mmol/L (3.5-5.1); Sodium 129 mmol/L (137-145)
[2019-08-20] MEDS ORDERED: MORPHINE SULFATE 2 MG/ML SYRINGE IVP STA ×2 (15:28→16:35)
[2019-08-21] MEDS ORDERED: PANTOPRAZOLE 40 MG TABLET PO SCH (07:30)
== END 2019-08-20 17:59 | disposition hospice, inpatient (51) | DRG 55 ==
LOC: EC 09:25 → 6NMEDSUR 13:45
PROVIDERS: ADMIT Hospitalist; ATTEND Hospitalist
PROC: 0DB98ZX Excision of Duodenum, Via Natural or Artificial Opening Endoscopic, Diagnostic (ICD-10-PCS; principal; 2019-08-15 08:15)
PROC: 0DB78ZX Excision of Stomach, Pylorus, Via Natural or Artificial Opening Endoscopic, Diagnostic (ICD-10-PCS; principal; 2019-08-15 08:15)
DX: C79.31 Secondary malignant neoplasm of brain (principal); E86.0 Dehydration; C55 Malignant neoplasm of uterus, part unspecified; D53.9 Nutritional anemia, unspecified; D63.0 Anemia in neoplastic disease; E83.42 Hypomagnesemia; E83.52 Hypercalcemia; E87.6 Hypokalemia; I10 Essential (primary) hypertension; K29.70 Gastritis, unspecified, without bleeding; K31.7 Polyp of stomach and duodenum; K44.9 Diaphragmatic hernia without obstruction or gangrene; N30.90 Cystitis, unspecified without hematuria; Z74.01 Bed confinement status; Z90.710 Acquired absence of both cervix and uterus; Z92.21 Personal history of antineoplastic chemotherapy; G51.0 Bell's palsy; Z51.5 Encounter for palliative care; Z88.8 Allergy status to other drugs, medicaments and biological substances
CPT/HCPCS: 36415; 43239; 70553; 71046; 71260; 74177; 80048; 80053; 81001; 82150; 83605; 83690; 83735; 84132; 84484; 85025; 85027; 85610; 85730; 88305; 93005; 93306; 94760; 96361; 96365; 96375; 99285